=== PATIENT | male | born 1950 | race Caucasian/White ===

== ENCOUNTER → 2017-01-25 | Outpatient (CLI) | payer BC, OTHER ==
--- NOTE | 2017-01-25 12:29 | CR ---
EXAMINATION: Pelvis and right hip HISTORY: Pain COMPARISON: None TECHNIQUE: AP pelvis and 2 views of the right hip FINDINGS: There is no acute osseous abnormality, dislocation, or fracture. Bone mineralization appea rs normal. SI joints are symmetric. Osteophyte formation is noted within the hips bilaterally. Moder ate joint space narrowing is noted within the left hip with probable mild joint space narrowing note d within the right. IMPRESSION: 1. Moderate degenerative changes and joint space narrowing within the left hip and mild within the r ight hip.
== END ==
LOC: MW.CHORTHO 07:41
PROVIDERS: ATTEND Orthopaedic Surgery
DX: M25.551 Pain in right hip (principal); M25.552 Pain in left hip; M25.852 Other specified joint disorders, left hip; M25.851 Other specified joint disorders, right hip
CPT/HCPCS: 73502-26-RT; 73502-RT

== ENCOUNTER → 2017-02-09 | Outpatient (CLI) | payer OTHER ==
--- NOTE | 2017-02-09 14:13 | CR ---
EXAMINATION: Cervical spine HISTORY: Neck pain COMPARISON: MRI dated 07/28/2016 TECHNIQUE: Single lateral view FINDINGS: There is anterior fusion hardware noted from C5 to C7 with anterior osseous bridging. Face t alignment is preserved. Vertebral body heights are maintained. Prevertebral soft tissues appear no rmal. No acute finding. IMPRESSION: Anterior fusion from C5 to C7 otherwise unremarkable cervical spine.
== END ==
LOC: MW.DI 09:21
PROVIDERS: ATTEND Neurological Surgery
DX: M54.2 Cervicalgia (principal)
CPT/HCPCS: 72020; 72020-26

== ENCOUNTER 2019-08-08 17:18 | Day surgery (SDC) | payer OTHER, MEDICARE ==
[2019-08-08] MEDS ORDERED: Ondansetron 4 MG/2 ML SDV IVPUSH ONE (17:19)
[2019-08-08] MEDS ORDERED: Sodium Chloride 0.9% 1,000 ML IV ONE (17:19)
[2019-08-08] MEDS ORDERED: Morphine 2 MG/ML Syringe IVPUSH ONE (17:32)
--- NOTE | 2019-08-08 17:43 | EDM.PDOC ---
ED HPI GENERAL MEDICAL PROBLEM - General Chief Complaint: Abdominal Pain Stated Complaint: SEVERE STOMACH PAIN Time Seen by Provider: 08/08/19 17:19 Source of Information: Reports: Patient History Limitations: Reports: No Limitations - History of Present Illness INITIAL COMMENTS - FREE TEXT/NARRATIVE: HISTORY AND PHYSICAL: History of present illness: Patient is a 68-year-old male presents to the ED today with concern of right lower quadrant pain since earlier this morning. Patient states he's not been able to eat and drink since last night due to nausea but states he has not vomited. Patient states starting today he started getting right lower quadrant pain which she rates a 9 out of 10 and is worse with movement and better with laying down. Patient states he has a history of COPD but denies any other health history or any abdominal surgeries. Patient states his last bowel movement was several days ago and he felt more constipated. Patient denies any other symptoms or concerns. Patient denies fever, chills, chest pain, shortness of breath, or cough. Denies headache, neck stiff ness, change in vision, syncope, or near syncope. Denies vomiting, or dysuria. Has not noted any blood in urine or stool. Review of systems: As per history of present illness and below otherwise all systems reviewed and negative. Past medical history: As per history of present illness and as reviewed below otherwise noncontributory. Surgical history: As per history of present illness and as reviewed below otherwise noncontributory. Social history: See social history for further information Family history: As per history of present illness and as reviewed below otherwise noncontributory. Physical exam: General: Patient is alert, oriented, and in no acute distress. Patient laying comfortably on exam table. HEENT: Atraumatic, normocephalic, pupils equal and reactive bilaterally, negative for conjunctival pallor or scleral icterus, mucous membranes dry, TMs normal bilaterally, throat clear, neck supple, nontender, trachea midline. No drooling or trismus noted. No meningeal signs. No hot potato voice noted. Lungs: Mild wheezing to auscultation to bilateral lung bases, breath sounds equal bilaterally, chest nontender. Heart: S1S2, regular rate and rhythm without overt murmur Abdomen: Obese, Soft, nondistended, moderate right lower quadrant pain without guarding. Positive rebound tenderness. Negative for masses or hepatosplenomegaly. Negative for costovertebral tenderness. Pelvis: Stable nontender. Genitourinary: Deferred. Rectal: Deferred. Skin: Intact, warm, dry. No lesions or rashes noted. Extremities: Atraumatic, negative for cords or calf pain. Neurovascular unremarkable. Neuro: Awake, alert, oriented. Cranial nerves II through XII unremarkable. Cerebellum unremarkable. Motor and sensory unremarkable throughout. Exam nonfocal. Notes: Dr. Bermudez consult on patient and has come in to see the patient. Voices understanding and is agreeable to plan of care. Denies any further questions or concerns at this time. Diagnostics: CBC, CMP, UA, EKG, lipase, abdominal pelvic CT Therapeutics: Saline, Zofran, morphine Impression: Acute appendicitis Intussusception w/o obstruction Left adrenal mass Plan: 1. Transfer to the OR with Dr. Bermudez Definitive disposition and diagnosis as appropriate pending reevaluation and review of above. RLQ Pain Score (Numeric/FACES): 8 - Related Data Allergies Allergy/AdvReac Type Severity Reaction Status Date / Time No Known Allergies Allergy Verified 08/08/19 17:25 Home Meds: Home Meds Benzonatate 100 mg PO TID 08/08/19 [History] Budesonide/Formoterol Fumarate [Symbicort 160-4.5 Mcg Inhaler] 160 mcg INH ASDIRECTED 08/08/19 [History] Furosemide 40 mg PO DAILY 08/08/19 [History] Loratadine [Claritin] 10 mg PO DAILY 08/08/19 [History] Losartan [Cozaar] 100 mg PO DAILY 08/08/19 [History] Potassium Chloride 10 meq PO DAILY 08/08/19 [History] amLODIPine [Norvasc] 5 mg PO DAILY 08/08/19 [History] atorvaSTATin [Lipitor] 40 mg PO DAILY 08/08/19 [History] buPROPion HCl [Wellbutrin Xl] 300 mg PO DAILY 08/08/19 [History] guaiFENesin [Guaifenesin] 600 mg PO Q6HR 08/08/19 [History] metFORMIN HCl [Metformin HCl ER] 500 mg PO DAILY 08/08/19 [History] Past Medical History HEENT History: Reports: Hard of Hearing, Other (See Below) Other HEENT History: wears glasses, has upper and lower dentures, sensorineural hearing loss Cardiovascular History: Reports: Angina, High Cholesterol, Hypertension, Other ( See Below) Other Cardiovascular History: hyperlipidema, ischemic heart disease Respiratory History: Reports: COPD, SOB Gastrointestinal History: Reports: Other (See Below) Other Gastrointestinal History: Umbillical Hernia Genitourinary History: Reports: Other (See Below) Other Genitourinary History: testicular hypogonadism, Musculoskeletal History: Reports: Arthritis Neurological History: Reports: Neuropathy, Diabetic, Other (See Below) Other Neuro History: insomnia Psychiatric History: Reports: Anxiety, PTSD Other Psychiatric History: denies need for pre admit sedation Endocrine/Metabolic History: Reports: Diabetes, Type II, Obesity/BMI 30+ Hematologic History: Reports: None Immunologic History: Reports: None Oncologic (Cancer) History: Reports: None Dermatologic History: Reports: None - Past Surgical History Head Surgeries/Procedures: Reports: None HEENT Surgical History: Reports: None Cardiovascular Surgical History: Reports: None Respiratory Surgical History: Reports: None GI Surgical History: Reports: Colonoscopy, Hernia, Inguinal Male Surgical History: Reports: None Musculoskeletal Surgical History: Reports: None Oncologic Surgical History: Reports: None Dermatological Surgical History: Reports: None Social & Family History - Family History Family Medical History: Noncontributory - Tobacco Use Smoking Status *Q: Former Smoker Used Tobacco, but Quit: Yes Month/Year Tobacco Last Used: 4 months - Caffeine Use Caffeine Use: Reports: None - Recreational Drug Use Recreational Drug Use: Yes Recreational Drug Type: Reports: Marijuana/Hashish Recreational Drug Use Frequency: Daily ED ROS GENERAL - Review of Systems Review Of Systems: ROS reveals no pertinent complaints other than HPI. ED EXAM, GENERAL - Physical Exam Exam: See Below (See dictation) Course - Vital Signs Last Recorded V/S: Last Vital Signs Temp 36.1 C 08/08/19 17:31 Pulse 64 08/08/19 18:45 Resp 18 08/08/19 18:45 BP 163/54 H 08/08/19 18:45 Pulse Ox 95 08/08/19 18:45 - Orders/Labs/Meds Orders: Active Orders 24 hr Category Date Time Status EKG Documentation Completion [RC] STAT Care 08/08/19 17:32 Active UA RFX MERLIN AND CULT IF INDIC [URIN] Stat Lab 08/08/19 17:19 Ordered Labs: Laboratory Tests 09/10/19 09/10/19 Range/Units 17:28 17:28 WBC 12.22 H (4.0-11.0) K/uL RBC 4.46 L (4.50-5.90) M/uL Hgb 13.2 (13.0-17.0) g/dL Hct 40.7 (38.0-50.0) % MCV 91.3 (80.0-98.0) fL MCH 29.6 (27.0-32.0) pg MCHC 32.4 (31.0-37.0) g/dL RDW Std Deviation 46.5 (28.0-62.0) fl RDW Coeff of Glo 14 (11.0-15.0) % Plt Count 224 (150-400) K/uL MPV 10.10 (7.40-12.00) fL Neut % (Auto) 77.8 (48.0-80.0) % Lymph % (Auto) 14.6 L (16.0-40.0) % [place] % (Auto) 5.8 (0.0-15.0) % Eos % (Auto) 1.5 (0.0-7.0) % Baso % (Auto) 0.3 (0.0-1.5) % Neut # (Auto) 9.5 H (1.4-5.7) K/uL Lymph # (Auto) 1.8 (0.6-2.4) K/uL [place] # (Auto) 0.7 (0.0-0.8) K/uL Eos # (Auto) 0.2 (0.0-0.7) K/uL Baso # (Auto) 0.0 (0.0-0.1) K/uL Nucleated RBC % 0.0 /100WBC Nucleated RBCs # 0 K/uL Sodium 141 (136-148) mmol/L Potassium 4.4 (3.5-5.1) mmol/L Chloride 104 (98-107) mmol/L Carbon Dioxide 27.2 (21.0-32.0) mmol/L BUN 17 (7.0-18.0) mg/dL Creatinine 1.2 (0.8-1.3) mg/dL Est Cr Clr Drug Dosing 63.62 mL/min Estimated GFR (MDRD) > 60.0 ml/min Glucose 89 (74-106) mg/dL Calcium 9.2 (8.5-10.1) mg/dL Total Bilirubin 0.4 (0.2-1.0) mg/dL AST 16 (15-37) IU/L ALT 30 (14-63) IU/L Alkaline Phosphatase 72 (46-116) U/L Total Protein 6.3 L (6.4-8.2) g/dL Albumin 3.5 (3.4-5.0) g/dL Globulin 2.8 (2.6-4.0) g/dL Albumin/Globulin Ratio 1.2 (0.9-1.6) Lipase 82 (73-393) U/L Meds: Medications Discontinued Medications Generic Name Dose Route Start Last Admin Trade Name Justinq PRN Reason Stop Dose Admin Sodium Chloride 1,000 mls @ 999 mls/hr 08/08/19 17:19 08/08/19 17:34 Normal Saline IV 08/08/19 18:19 999 mls/hr BOLUS ONE Administration Iopamidol 100 ml 08/08/19 18:47 08/08/19 18:48 Isovue Multipack-370 (76%) IVPUSH 08/08/19 18:48 100 ml ONETIME ONE Administration Morphine Sulfate 2 mg 08/08/19 17:32 08/08/19 17:41 Morphine IVPUSH 08/08/19 17:33 2 mg ONETIME ONE Administration Ondansetron HCl 4 mg 08/08/19 17:19 08/08/19 17:34 Zofran IVPUSH 08/08/19 17:20 4 mg ONETIME ONE Administration Departure - Departure Time of Disposition: 20:02 Disposition: Still A Patient 30 Clinical Impression: Adrenal mass, Intussusception Acute appendicitis Qualifiers: Acute appendicitis type: unspecified acute appendicitis type Qualified Code(s) : K35.80 - Unspecified acute appendicitis - Discharge Information - My Orders Last 24 Hours: My Active Orders 08/08/19 17:19 UA RFX MERLIN AND CULT IF INDIC [URIN] Stat 08/08/19 17:32 EKG Documentation Completion [RC] STAT - Assessment/Plan Last 24 Hours: My Active Orders 08/08/19 17:19 UA RFX MERLIN AND CULT IF INDIC [URIN] Stat 08/08/19 17:32 EKG Documentation Completion [RC] STAT
[2019-08-08 18:03] LABS: BLOOD UREA NITROGEN,BUN 17 mg/dL (7.0-18.0); CARBON DIOXIDE,CO2 27.2 mmol/L (21.0-32.0); CHLORIDE,CL 104 mmol/L (98-107); GLUCOSE RANDOM 89 mg/dL (74-106); LIPASE 82 U/L (73-393); POTASSIUM,K 4.4 mmol/L (3.5-5.1); SODIUM,NA 141 mmol/L (136-148)
[2019-08-08] MEDS ORDERED: Iopamidol 755 MG/ML 500 ML Multipack Bottle IVPUSH ONE (18:47)
--- NOTE | 2019-08-08 19:49 | CT ---
INDICATION: Right lower quadrant pain TECHNIQUE: CT abdomen and pelvis acquired with 100 cc Isovue 370 IV contrast. COMPARISON: None FINDINGS: Lower chest: Coronary artery calcification. Liver: Unremarkable. Spleen: Unremarkable. Pancreas: Unremarkable. Gallbladder and bile ducts: Unremarkable. Adrenal glands: 1.3 x 1.5 cm left adrenal gland mass. Kidneys: Simple cyst on the right kidney. GI tract: The appendix measures 9 mm in diameter. Mild periappendiceal fat stranding. Findings are best seen on coronal images 22-34. No extraluminal air or abscess. Intussusception at the level of the pylorus. No evidence for obstruction. No definite lead point identified. Duodenal diverticulum. Vascular structures: Moderate atherosclerotic disease. Lymph nodes: Unremarkable. Miscellaneous: Unremarkable. No free air or significant free fluid. Pelvic Organs: Unremarkable. Bones: Bilateral L5 pars defects. Severe degenerative changes at L5-S1. Moderate degenerative changes throughout the remainder of the lumbar spine. IMPRESSION: The appendix measures 9 mm in diameter and there is mild periappendiceal fat stranding. Findings are highly concerning for acute appendicitis. No abscess or extraluminal air. There is an intussusception at the level of the pylorus without obstruction. Consider nonemergent endoscopy to evaluate for lead point. Coronary artery calcifications. Left adrenal gland mass. Recommend adrenal CT for further characterization. Duodenal diverticulum. Findings discussed with Dr. Hernandez at 7:47 p.m. on August 08, 2019. Please note that all CT scans at this facility use dose modulation, iterative reconstruction, and/or weight-based dosing when appropriate to reduce radiation dose to as low as reasonably achievable. Dictated by Shreya Campbell MD @ Aug 08 2019 7:16PM (Electronically Signed)
--- NOTE | 2019-08-08 20:50 | PCM.PREANE ---
Preanesthetic Assessment - Anesthesia/Transfusion/Family Hx Anesthesia History: Prior Anesthesia Without Reaction Other Type of Anesthesia Reaction Comment: Denies any known problems Family History of Anesthesia Reaction: No Transfusion History: No Prior Transfusion(s) - Review of Systems General: Fever Pulmonary: Cough Cardiovascular: Edema Gastrointestinal: No Symptoms Neurological: No Symptoms Other: Reports: None - Physical Assessment NPO Status Date: 08/08/19 Vital Signs: Last Vital Signs Temp 96.9 F 08/08/19 17:31 Pulse 64 08/08/19 18:45 Resp 18 08/08/19 18:45 BP 163/54 H 08/08/19 18:45 Pulse Ox 95 08/08/19 18:45 Height: 5 ft 11 in Weight: 105 kg ASA Class: 3E Mental Status: Alert & Oriented x3 Airway Class: Mallampati = 2 Dentition: Reports: Normal Dentition Thyro-Mental Finger Breadths: 3 Mouth Opening Finger Breadths: 3 ROM/Head Extension: Limited/Partial (Cervical Fusion) Lungs: Clear to Auscultation, Normal Respiratory Effort Cardiovascular: Regular Rate, Regular Rhythm - Lab Values: Laboratory Last Values WBC 12.22 K/uL (4.0-11.0) H 08/08/19 17:28 RBC 4.46 M/uL (4.50-5.90) L 08/08/19 17:28 Hgb 13.2 g/dL (13.0-17.0) 08/08/19 17:28 Hct 40.7 % (38.0-50.0) 08/08/19 17:28 MCV 91.3 fL (80.0-98.0) 08/08/19 17:28 MCH 29.6 pg (27.0-32.0) 08/08/19 17:28 MCHC 32.4 g/dL (31.0-37.0) 08/08/19 17:28 RDW Std Deviation 46.5 fl (28.0-62.0) 08/08/19 17:28 RDW Coeff of Glo 14 % (11.0-15.0) 08/08/19 17:28 Plt Count 224 K/uL (150-400) 08/08/19 17:28 MPV 10.10 fL (7.40-12.00) 08/08/19 17:28 Neut % (Auto) 77.8 % (48.0-80.0) 08/08/19 17: Lymph % (Auto) 14.6 % (16.0-40.0) L 08/08/19: [place] % (Auto) 5.8 % (0.0-15.0) 08/08/19: Eos % (Auto) 1.5 % (0.0-7.0) 08/08/19: Baso % (Auto) 0.3 % (0.0-1.5) 08/08/19: Neut # (Auto) 9.5 K/uL (1.4-5.7) H 08/08/19: Lymph # (Auto) 1.8 K/uL (0.6-2.4) 08/08/19: [place] # (Auto) 0.7 K/uL (0.0-0.8) 08/08/19: Eos # (Auto) 0.2 K/uL (0.0-0.7) 08/08/19: Baso # (Auto) 0.0 K/uL (0.0-0.1) 08/08/19: Nucleated RBC % 0.0 /100WBC 08/08/19: Nucleated RBCs # 0 K/uL 08/08/19: Sodium 141 mmol/L (136-148) 08/08/19: Potassium 4.4 mmol/L (3.5-5.1) 08/08/19: Chloride 104 mmol/L (98-107) 08/08/19: Carbon Dioxide 27.2 mmol/L (21.0-32.0) 08/08/19: BUN 17 mg/dL (7.0-18.0) 08/08/19: Creatinine 1.2 mg/dL (0.8-1.3) 08/08/19: Est Cr Clr Drug Dosing 63.62 mL/min 08/08/19 17:28 Estimated GFR (MDRD) > 60.0 ml/min 08/08/19 17:28 Glucose 89 mg/dL (74-106) 08/08/19: Calcium 9.2 mg/dL (8.5-10.1) 08/08/19 17:28 Total Bilirubin 0.4 mg/dL (0.2-1.0) 08/08/19 17:28 AST 16 IU/L (15-37) 08/08/19 17:28 ALT 30 IU/L (14-63) 08/08/19 17:28 Alkaline Phosphatase 72 U/L (46-116) 08/08/19 17:28 Total Protein 6.3 g/dL (6.4-8.2) L 08/08/19 17:28 Albumin 3.5 g/dL (3.4-5.0) 08/08/19 17:28 Globulin 2.8 g/dL (2.6-4.0) 08/08/19 17:28 Albumin/Globulin Ratio 1.2 (0.9-1.6) 08/08/19 17:28 Lipase 82 U/L (73-393) 08/08/19 17:28 - Allergies Allergies/Adverse Reactions: Allergies Allergy/AdvReac Type Severity Reaction Status Date / Time No Known Allergies Allergy Verified 08/08/19 17:25 - Anesthesia Plan Free Text/Narrative:: Pt states they just returned from [place] today; he states he was able to walk around without difficulty or shortness of breath. Pt denies any chest pain. Pt states he did have a chemical stress test 3-4 years ago that was negative. - Acknowledgements Anesthesia Type Planned: General Anesthesia Pt an Appropriate Candidate for the Planned Anesthesia: Yes Alternatives and Risks of Anesthesia Discussed w Pt/Guardian: Yes Pt/Guardian Understands and Agrees with Anesthesia Plan: Yes PreAnesthesia Questionnaire HEENT History: Reports: Hard of Hearing, Other (See Below) Other HEENT History: wears glasses, has upper and lower dentures, sensorineural hearing loss Cardiovascular History: Reports: Angina, High Cholesterol, Hypertension, Other ( See Below) Other Cardiovascular History: hyperlipidema, ischemic heart disease Respiratory History: Reports: COPD, SOB Gastrointestinal History: Reports: Other (See Below) Other Gastrointestinal History: Umbillical Hernia Genitourinary History: Reports: Other (See Below) Other Genitourinary History: testicular hypogonadism, Musculoskeletal History: Reports: Arthritis Neurological History: Reports: Neuropathy, Diabetic, Other (See Below) Other Neuro History: insomnia Psychiatric History: Reports: Anxiety, PTSD Other Psychiatric History: denies need for pre admit sedation Endocrine/Metabolic History: Reports: Diabetes, Type II, Obesity/BMI 30+ Hematologic History: Reports: None Immunologic History: Reports: None Oncologic (Cancer) History: Reports: None Dermatologic History: Reports: None - Past Surgical History Head Surgeries/Procedures: Reports: None HEENT Surgical History: Reports: None Cardiovascular Surgical History: Reports: None Respiratory Surgical History: Reports: None GI Surgical History: Reports: Colonoscopy, Hernia, Inguinal Male Surgical History: Reports: None Musculoskeletal Surgical History: Reports: None Oncologic Surgical History: Reports: None Dermatological Surgical History: Reports: None - SUBSTANCE USE Smoking Status *Q: Former Smoker Recreational Drug Use History: Yes Recreational Drug Type: Reports: Marijuana/Hashish - HOME MEDS Home Medications: Home Meds Benzonatate 100 mg PO TID 08/08/19 [History] Budesonide/Formoterol Fumarate [Symbicort 160-4.5 Mcg Inhaler] 160 mcg INH ASDIRECTED 08/08/19 [History] Furosemide 40 mg PO DAILY 08/08/19 [History] Loratadine [Claritin] 10 mg PO DAILY 08/08/19 [History] Losartan [Cozaar] 100 mg PO DAILY 08/08/19 [History] Potassium Chloride 10 meq PO DAILY 08/08/19 [History] amLODIPine [Norvasc] 5 mg PO DAILY 08/08/19 [History] atorvaSTATin [Lipitor] 40 mg PO DAILY 08/08/19 [History] buPROPion HCl [Wellbutrin Xl] 300 mg PO DAILY 08/08/19 [History] guaiFENesin [Guaifenesin] 600 mg PO Q6HR 08/08/19 [History] metFORMIN HCl [Metformin HCl ER] 500 mg PO DAILY 08/08/19 [History] - CURRENT (IN HOUSE) MEDS Current Meds: Current Medications Discontinued Medications Sodium Chloride (Normal Saline) 1,000 mls @ 999 mls/hr IV BOLUS ONE Stop: 08/08/19 18:19 Last Admin: 08/08/19 17:34 Dose: 999 mls/hr Iopamidol (Isovue Multipack-370 (76%)) 100 ml IVPUSH ONETIME ONE Stop: 08/08/19 18:48 Last Admin: 08/08/19 18:48 Dose: 100 ml Morphine Sulfate (Morphine) 2 mg IVPUSH ONETIME ONE Stop: 08/08/19 17:33 Last Admin: 08/08/19 17:41 Dose: 2 mg Ondansetron HCl (Zofran) 4 mg IVPUSH ONETIME ONE Stop: 08/08/19 17:20 Last Admin: 08/08/19 17:34 Dose: 4 mg
[2019-08-08] MEDS ORDERED: cefOXitin 2 GM in Premix Bag 1 BAG IV ONE (20:58)
[2019-08-08] MEDS ORDERED: Lactated Ringers 1,000 ML IV SCH ×2 (21:00→23:15)
[2019-08-08] MEDS ORDERED: Bupivacaine 25%/EPINEPHrine/PF 30 ML ONE (21:02)
[2019-08-08] MEDS ORDERED: Midazolam 1 MG/ML 2 ML SDV ONE (21:21)
[2019-08-08] MEDS ORDERED: Sodium Chloride 0.9% 20 ML ONE ×2 (21:21→21:43)
[2019-08-08] MEDS ORDERED: Lidocaine 2% 5 ML SDV ONE (21:21)
[2019-08-08] MEDS ORDERED: ePHEDrine 50 MG/ML SDV ONE (21:21)
[2019-08-08] MEDS ORDERED: Ondansetron 4 MG/2 ML SDV ONE (21:21)
[2019-08-08] MEDS ORDERED: Propofol 200 MG/20 ML SDV ONE (21:21)
[2019-08-08] MEDS ORDERED: fentaNYL 250 MCG/5 ML SDV ONE (21:21)
[2019-08-08] MEDS ORDERED: Rocuronium 100 MG/10 ML Syringe ONE (21:22)
--- NOTE | 2019-08-08 21:33 | PCM.SN ---
- Free Text/Narrative Note: pt seen, chart reviewed; acute appy, to or for lap, poss appy; rb dw pt re bleeding/infection/damage to nearby organs/postop course; pt concur and proceed ; other cT findings will not be addressed tonight; pt voiced understanding; [id number]
[2019-08-08] MEDS ORDERED: Glycopyrrolate 0.2 MG/ML SDV ONE ×2 (21:34→21:36)
[2019-08-08] MEDS ORDERED: Phenylephrine/Normal Saline 100 MCG/ML 10 ML Syringe ONE (21:42)
[2019-08-08] MEDS ORDERED: cefOXitin 1 GM Vial ONE (21:47)
[2019-08-08] MEDS ORDERED: EPINEPHrine 1:10,000 1 MG/10 ML Syringe IVPUSH PRN (22:18)
[2019-08-08] MEDS ORDERED: fentaNYL 100 MCG/2 ML SDV IVPUSH PRN (22:18)
[2019-08-08] MEDS ORDERED: 50% Dextrose in Water 50 ML Syringe IVPUSH PRN (22:18)
[2019-08-08] MEDS ORDERED: Atropine 0.1 MG/ML 10 ML Syringe IVPUSH PRN ×2 (22:18)
[2019-08-08] MEDS ORDERED: Albuterol 0.083% 2.5 MG/3 ML Neb Soln NEB PRN (22:18)
[2019-08-08] MEDS ORDERED: Naloxone 0.4 MG/ML Syringe IVPUSH PRN (22:18)
--- NOTE | 2019-08-08 23:04 | PCM.OPNOTE ---
- General Post-Op/Procedure Note Date of Surgery/Procedure: 08/08/19 Operative Procedure(s): 1) lap appendectomy. 2) lap internal hernia take down Findings: appendix incarcerated and strangulated in internal hernia; gross perf not observed; [id number] Pre Op Diagnosis: acute appendicitis Post-Op Diagnosis: Same Anesthesia Technique: General ET Tube Primary Surgeon: Donavon Bermudez Pathology: sent Complications: None Condition: Stable
[2019-08-08] MEDS ORDERED: Ondansetron 4 MG/2 ML SDV IVPUSH PRN (23:06)
[2019-08-08] MEDS ORDERED: Morphine 2 MG/ML Syringe IVPUSH PRN (23:07)
--- NOTE | 2019-08-08 23:13 | PCM.POSTAN ---
POST ANESTHESIA ASSESSMENT - MENTAL STATUS Mental Status: Alert, Oriented - VITAL SIGNS Vital Signs: Last Vital Signs Temp 98.2 F 08/08/19 22:53 Pulse 65 08/08/19 22:53 Resp 14 08/08/19 22:53 BP 163/54 H 08/08/19 18:45 Pulse Ox 96 08/08/19 22:53 - RESPIRATORY Respiratory Status: Respiratory Rate WNL, Airway Patent, O2 Saturation Stable, Supplemental Oxygen - CARDIOVASCULAR CV Status: Pulse Rate WNL, Blood Pressure Stable - GASTROINTESTINAL GI Status: No Symptoms - PAIN Pain Score: 1 - POST OP HYDRATION Hydration Status: Adequate & Stable - OBSERVATIONS Free Text/Narrative:: Tele ordered for overnight monitoring due to Ischemic heart disease.
[2019-08-09] MEDS: Acetaminophen/oxyCODONE 325-5 MG Tab PO PRN ×2 (01:20→08:46)
--- NOTE | 2019-08-09 03:39 | CONS ---
DATE OF CONSULTATION: DATE OF : 1950 PRIMARY CARE PHYSICIAN: None PCP REASON FOR CONSULTATION: Acute appendicitis. HISTORY OF PRESENT ILLNESS: The patient is a 68-year-old obese gentleman complaining over an hour history of acute onset of right lower quadrant pain and seen in the emergency room and got a CAT scan shows dilated appendix with dirty fat consistent with early acute appendicitis. The patient currently complaining of pain and denied fever, chill, or trauma. Denied prior episode. PAST MEDICAL HISTORY: Significant for hypertension, diabetic and COPD. PAST SURGICAL HISTORY: Bilateral inguinal hernia repair with mesh and umbilical hernia. The patient said that there is no mesh. EGD and colonoscopy. ALLERGIES: Please refer to nursing for details. MEDICATIONS: Please refer to nursing for details. REVIEW OF SYSTEMS: Same as history of present illness. PHYSICAL EXAMINATION: GENERAL: A very pleasant gentleman, even getting in and out of bed in the coleman motion. HEENT: Normocephalic and atraumatic. Sclerae anicteric. LUNGS: Clear to auscultation. HEART: Regular rate and rhythm. ABDOMEN: Soft. No pulsating tender, midline abdominal structure. Exquisite tenderness on the McBurney point. No rebound tenderness. No Rovsing sign. LABORATORY DATA: White count is [address] consistent with acute appendicitis. IMPRESSION: Acute appendicitis and would predict the operating room for surgical intervention. Risks and benefits discussed with the patient including bleeding, infection, damage to nearby organ or possible drain placement if perforated and the patient concurred to proceed as planned and on the CAT scan finding, there is some other thing like intussusception of the pylorus as well as left adrenal mass. This will not be considered or assessed or evaluated tonight. On emergent surgery, we will take care of the appendix and all else we will address after the surgery. The patient voiced understanding. As always, thank you for your kind referral. EDWAR / CHARLIE /[id number]
--- NOTE | 2019-08-09 07:11 | PCM48HPAN ---
Post Anesthesia Note - EVALUATION WITHIN 48HRS OF ANESTHETIC Vital Signs in Normal Range: Yes Patient Participated in Evaluation: Yes Respiratory Function Stable: Yes (0.5 LPM via NC) Airway Patent: Yes Cardiovascular Function Stable: Yes Hydration Status Stable: Yes Pain Control Satisfactory: Yes Nausea and Vomiting Control Satisfactory: Yes Mental Status Recovered: Yes Vital Signs: Last Vital Signs Temp 98.2 F 08/09/19 04:00 Pulse 64 08/09/19 04:00 Resp 18 08/09/19 04:00 BP 135/63 08/09/19 04:00 Pulse Ox 98 08/09/19 04:00
[2019-08-09 08:22] VITALS: BP 141/61; PULSE 65
--- NOTE | 2019-08-09 08:49 | OR ---
SURGEON: Donavon Bermudez MD DATE OF PROCEDURE: 08/08/2019 PREOPERATIVE DIAGNOSIS: Acute appendicitis. POSTOPERATIVE DIAGNOSIS: Acute appendicitis. PROCEDURE PERFORMED: Laparoscopic appendectomy. COMPLICATIONS: None. FINDINGS: Quite interesting, the appendix was incarcerated in an internal hernia from prior surgical scar formation, and half of the appendix has gone through and become dilated and dusky in appearance because of the internal hernia. After hernia release, the appendix totally goes back to normal. Gross perforation is not observed. DESCRIPTION OF PROCEDURE: The patient was taken to the operating room and placed in the supine position. Upon induction of general endotracheal anesthesia, the patient's abdomen was prepped and draped in a sterile fashion. Using Redditview, a 12 mm trocar was placed supraumbilically and followed with placement of 5 mm trocar in the right upper quadrant and suprapubic under direct video supervision. Pneumoperitoneum was accomplished, and following the tenia of the right colon, the appendix was located, and interestingly, the appendix looks like it goes through an internal hernia formed between the abdominal wall with some scar tissue. There is a little window that the appendix goes through and was incarcerated in the mid appendix, in the mid length, and the appendix is dilated and a little bit dusky in appearance. Using Harmonic scalpel, the internal hernia was then opened up, and the appendix totally returned to pink and well perfused. Using laparoscopic stapler, the appendix was amputated at the base with mesoappendix together and retrieved by the endoscopic bag. After surgery, looking at the staple line, there was a little bit of bleeding on the mesoappendix, and 2 endoscopic holden were placed followed by a piece of Surgicel, and the trocar was then removed. Under direct video supervision, the 12 mm supraumbilical trocar site was repaired by use of 2-0 Vicryl, followed by skin stapler to approximate the skin, as well as at the other two 5 mm trocar sites, followed by appropriate dressing. The patient was awakened, extubated, and transferred to the Recovery in hemodynamically stable condition. The patient tolerated the procedure well. There were no intraoperative complications. Dr. Bermudez was present throughout the whole procedure. As always, thank you for the kind referral. EDWAR / CHARLIE /[id number]
== END 2019-08-09 11:45 | disposition home or self-care (01) ==
LOC: MW.ED 17:18 → MW.SDS 20:46 → MW.MS 23:05 → MW.SDS 08-09 11:45
PROVIDERS: ATTEND Surgery
DX: K35.80 Unspecified acute appendicitis (principal); J44.9 Chronic obstructive pulmonary disease, unspecified; I10 Essential (primary) hypertension; E11.40 Type 2 diabetes mellitus with diabetic neuropathy, unspecified; E66.9 Obesity, unspecified; F32.9 Major depressive disorder, single episode, unspecified; Z79.899 Other long term (current) drug therapy; Z79.84 Long term (current) use of oral hypoglycemic drugs; Z87.891 Personal history of nicotine dependence; Z68.32 Body mass index [BMI] 32.0-32.9, adult
CPT/HCPCS: 36415; 44970; 74177; 80053; 81003; 83690; 85025; 88304; 93005; 96361; 96365; 96375; 99285; A9270; J0330; J0694; J2001; J2250; J2270; J2370; J2405; J2704; J3010; J3490; J7040; J7120; Q9967; 99283

== ENCOUNTER 2020-08-28 09:44 | Inpatient (IN) | payer OTHER, MEDICARE ==
[2020-08-28] MEDS ORDERED: Sodium Chloride 0.9% 10 ML Syringe FLUSH PRN (09:47)
[2020-08-28] MEDS ORDERED: Sodium Chloride 0.9% 2.5 ML Syringe FLUSH PRN (09:47)
--- NOTE | 2020-08-28 09:57 | EDM.PDOC ---
ED HPI GENERAL MEDICAL PROBLEM - General Stated Complaint: STROKE CODE Time Seen by Provider: 08/28/20 09:47 Source of Information: Reports: Patient, EMS History Limitations: Reports: No Limitations - History of Present Illness INITIAL COMMENTS - FREE TEXT/NARRATIVE: 69M PMHx COPD, CHF, NIDDM2, recent total L hip replacement 2-weeks ago, recently diagnosed unspecified cancer presents for concern for CVA. History from EMS. Patient has had a non-productive cough x roughly 5 days. His was recently diagnosed with pneumonia and concern for COVID. Patient last night went to bed feeling well. Woke up around 5AM and was noted to be normal. Around 9AM he was noted by home health nurse to have right-sided body weakness and difficulty with speech prompting EMS call. By the time EMS arrived, patient was noted to have normal/symmetric movement of b/l UE/LE but still with speech difficulty. Through chart searching, it appears that patient has primary lung CA w/ metastatic disease to mediastinal lymph nodes, liver, and adrenal gland. - Related Data Allergies Allergy/AdvReac Type Severity Reaction Status Date / Time No Known Allergies Allergy Verified 08/28/20 09:50 Home Meds: Home Meds Furosemide 40 mg PO DAILY 08/08/19 [History] Losartan [Cozaar] 100 mg PO DAILY 08/08/19 [History] Potassium Chloride 10 meq PO DAILY 08/08/19 [History] amLODIPine [Norvasc] 5 mg PO DAILY 08/08/19 [History] atorvaSTATin [Lipitor] 40 mg PO DAILY 08/08/19 [History] buPROPion HCL [Wellbutrin Xl] 300 mg PO DAILY 08/08/19 [History] metFORMIN HCl [Metformin HCl ER] 500 mg PO DAILY 08/08/19 [History] Albuterol Sulfate [Albuterol Sulfate Hfa] 1 puff INH ASDIRECTED 08/28/20 [History] Past Medical History HEENT History: Reports: Hard of Hearing, Other (See Below) Other HEENT History: wears glasses, has upper and lower dentures, sensorineural hearing loss Cardiovascular History: Reports: Angina, High Cholesterol, Hypertension, Other (See Below) Other Cardiovascular History: hyperlipidema, ischemic heart disease Respiratory History: Reports: COPD, SOB Gastrointestinal History: Reports: Other (See Below) Other Gastrointestinal History: Umbillical Hernia Genitourinary History: Reports: Other (See Below) Other Genitourinary History: testicular hypogonadism, Musculoskeletal History: Reports: Arthritis Neurological History: Reports: Neuropathy, Diabetic, Other (See Below) Other Neuro History: insomnia Psychiatric History: Reports: Anxiety, PTSD Other Psychiatric History: denies need for pre admit sedation Endocrine/Metabolic History: Reports: Diabetes, Type II, Obesity/BMI 30+ Hematologic History: Reports: None Immunologic History: Reports: None Oncologic (Cancer) History: Reports: None Dermatologic History: Reports: None - Past Surgical History Head Surgeries/Procedures: Reports: None HEENT Surgical History: Reports: None Cardiovascular Surgical History: Reports: None Respiratory Surgical History: Reports: None GI Surgical History: Reports: Colonoscopy, Hernia, Inguinal Male Surgical History: Reports: None Musculoskeletal Surgical History: Reports: None Oncologic Surgical History: Reports: None Dermatological Surgical History: Reports: None Social & Family History - Family History Family Medical History: Noncontributory - Caffeine Use Caffeine Use: Reports: Coffee ED ROS GENERAL - Review of Systems Review Of Systems: Comprehensive ROS is negative, except as noted in HPI. ED EXAM, GENERAL - Physical Exam Exam: See Below Exam Limited By: Altered Mental Status General Appearance: Alert, WD/WN, No Apparent Distress Eye Exam: Bilateral Eye: EOMI, PERRL Ears: Normal External Exam Nose: Normal Inspection Throat/Mouth: Normal Inspection, Normal Voice, No Airway Compromise Head: Atraumatic, Normocephalic Neck: Normal Inspection Respiratory/Chest: No Respiratory Distress, Lungs Clear, Normal Breath Sounds, No Accessory Muscle Use Cardiovascular: Normal Peripheral Pulses, Regular Rate, Rhythm GI/Abdominal: Soft, Non-Tender, No Distention Extremities: Normal Inspection Neurological: Alert, Oriented, CN II-XII Intact, Normal Cognition, Other (normal lamination inspector strength and sensation b/l UE, no drift b/l UE, unable to assess b/l LE 2/2 generalized weakness and recent hip surgery however normal b/l planterflexion strength) Psychiatric: Normal Affect, Normal Mood Skin Exam: Warm, Dry, Intact EKG INTERPRETATION EKG Date: 08/28/20 Time: 10:58 Rhythm: Other (appears normal) Rate (Beats/Min): 89 [place]: Normal P-Wave: Present QRS: Normal ST-T: Normal QT: Normal EKG Interpretation Comments: machine read as Afib but very shaky baseline obscures interpretation. Appears regular w/ a few PVCs. No overt ischemic changes Course - Vital Signs Last Recorded V/S: Last Vital Signs Temp 96.6 F L 08/28/20 09:44 Pulse 91 08/28/20 09:44 Resp 19 08/28/20 09:44 BP 129/61 08/28/20 09:44 Pulse Ox 94 L 08/28/20 09:44 - Orders/Labs/Meds Orders: Active Orders 24 hr Category Date Time Status Cardiac Monitoring [RC] . DIRECTED Care 08/28/20 09:48 Active EKG Documentation Completion [RC] STAT Care 08/28/20 09:47 Active Pulse Oximetry [RC] ASDIRECTED Care 08/28/20 09:48 Active Urinary Catheter Assessment [RC] ASDIRECTED Care 08/28/20 11:58 Active Urinary Catheter Insertion [Insert Urinary Catheter] [ Care 08/28/20 12:00 Ordered OM.PC] Q24H UA W/MERLIN RFLX IF INDICATED [URIN] Stat Lab 08/28/20 09:48 Ordered Sodium Chloride 0.9% [Saline Flush] Med 08/28/20 09:47 Active 10 ml FLUSH ASDIRECTED PRN Sodium Chloride 0.9% [Saline Flush] Med 08/28/20 09:47 Active 2.5 ml FLUSH ASDIRECTED PRN Saline Lock Insert [OM.PC] Stat Oth 08/28/20 09:48 Ordered Medication Orders Sodium Chloride (Saline Flush) 10 ml FLUSH ASDIRECTED PRN PRN Reason: Keep Vein Open Last Admin: 08/28/20 12:05 Dose: 10 ml Documented by: [id number] Sodium Chloride (Saline Flush) 2.5 ml FLUSH ASDIRECTED PRN PRN Reason: Keep Vein Open Last Admin: 08/28/20 12:05 Dose: 2.5 ml Documented by: [email or web address] Labs: Laboratory Tests 08/28/20 08/28/20 08/28/20 Range/Units 09:45 09:45 09:45 WBC 6.40 (4.0-11.0) K/uL RBC 3.14 L (4.50-5.90) M/uL Hgb 9.0 L (13.0-17.0) g/dL Hct 29.3 L (38.0-50.0) % MCV 93.3 (80.0-98.0) fL MCH 28.7 (27.0-32.0) pg MCHC 30.7 L (31.0-37.0) g/dL RDW Std Deviation 55.2 (28.0-62.0) fl RDW Coeff of Glo 16 H (11.0-15.0) % Plt Count 210 (150-400) K/uL MPV 10.20 (7.40-12.00) fL Neut % (Auto) 82.2 H (48.0-80.0) % Lymph % (Auto) 11.4 L (16.0-40.0) % [place] % (Auto) 5.6 (0.0-15.0) % Eos % (Auto) 0.5 (0.0-7.0) % Baso % (Auto) 0.3 (0.0-1.5) % Neut # (Auto) 5.3 (1.4-5.7) K/uL Lymph # (Auto) 0.7 (0.6-2.4) K/uL [place] # (Auto) 0.4 (0.0-0.8) K/uL Eos # (Auto) 0.0 (0.0-0.7) K/uL Baso # (Auto) 0.0 (0.0-0.1) K/uL Nucleated RBC % 0.7 /100WBC Nucleated RBCs # 0 K/uL INR 1.05 APTT 20.5 (18.6-31.3) SEC Lactate 1.6 (0.20-2.00) mmol/L Sodium (136-148) mmol/L Potassium (3.5-5.1) mmol/L Chloride (98-107) mmol/L Carbon Dioxide (21.0-32.0) mmol/L BUN (7.0-18.0) mg/dL Creatinine (0.8-1.3) mg/dL Est Cr Clr Drug Dosing mL/min Estimated GFR (MDRD) ml/min Glucose (74-106) mg/dL Calcium (8.5-10.1) mg/dL Magnesium (1.8-2.4) mg/dL Total Bilirubin (0.2-1.0) mg/dL AST (15-37) IU/L ALT (14-63) IU/L Alkaline Phosphatase (46-116) U/L Troponin I (0.000-0.056) ng/mL C-Reactive Protein (0.00-0.90) mg/dL B-Natriuretic Peptide (<100) PG/ML Total Protein (6.4-8.2) g/dL Albumin (3.4-5.0) g/dL Globulin (2.6-4.0) g/dL Albumin/Globulin Ratio (0.9-1.6) SARS-CoV-2 RNA (CHRISTINAO) (NEGATIVE) 08/28/20 08/28/20 08/28/20 Range/Units 09:45 09:45 11:00 WBC (4.0-11.0) K/uL RBC (4.50-5.90) M/uL Hgb (13.0-17.0) g/dL Hct (38.0-50.0) % MCV (80.0-98.0) fL MCH (27.0-32.0) pg MCHC (31.0-37.0) g/dL RDW Std Deviation (28.0-62.0) fl RDW Coeff of Glo (11.0-15.0) % Plt Count (150-400) K/uL MPV (7.40-12.00) fL Neut % (Auto) (48.0-80.0) % Lymph % (Auto) (16.0-40.0) % [place] % (Auto) (0.0-15.0) % Eos % (Auto) (0.0-7.0) % Baso % (Auto) (0.0-1.5) % Neut # (Auto) (1.4-5.7) K/uL Lymph # (Auto) (0.6-2.4) K/uL [place] # (Auto) (0.0-0.8) K/uL Eos # (Auto) (0.0-0.7) K/uL Baso # (Auto) (0.0-0.1) K/uL Nucleated RBC % /100WBC Nucleated RBCs # K/uL INR APTT (18.6-31.3) SEC Lactate (0.20-2.00) mmol/L Sodium 136 (136-148) mmol/L Potassium 5.1 (3.5-5.1) mmol/L Chloride 99 (98-107) mmol/L Carbon Dioxide 29.0 (21.0-32.0) mmol/L BUN 37 H (7.0-18.0) mg/dL Creatinine 1.3 (0.8-1.3) mg/dL Est Cr Clr Drug Dosing 56.15 mL/min Estimated GFR (MDRD) 54.9 ml/min Glucose 109 H (74-106) mg/dL Calcium 12.3 H (8.5-10.1) mg/dL Magnesium 1.7 L (1.8-2.4) mg/dL Total Bilirubin 0.7 (0.2-1.0) mg/dL AST 158 H (15-37) IU/L ALT 51 (14-63) IU/L Alkaline Phosphatase 233 H (46-116) U/L Troponin I < 0.050 (0.000-0.056) ng/mL C-Reactive Protein 8.10 H (0.00-0.90) mg/dL B-Natriuretic Peptide 298 H (<100) PG/ML Total Protein 6.2 L (6.4-8.2) g/dL Albumin 2.9 L (3.4-5.0) g/dL Globulin 3.3 (2.6-4.0) g/dL Albumin/Globulin Ratio 0.9 (0.9-1.6) SARS-CoV-2 RNA (CHRISTIANO) POSITIVE H (NEGATIVE) Meds: Medications Generic Name Dose Route Start Last Admin Trade Name Freq PRN Reason Stop Dose Admin Sodium Chloride 10 ml 08/28/20 09:47 08/28/20 12:05 Saline Flush FLUSH 10 ml ASDIRECTED PRN Administration Keep Vein Open Sodium Chloride 2.5 ml 08/28/20 09:47 08/28/20 12:05 Saline Flush FLUSH 2.5 ml ASDIRECTED PRN Administration Keep Vein Open - Re-Assessments/Exams Free Text/Narrative Re-Assessment/Exam: 08/28/20 10:[address] head and CTA head/neck, will get broad workup as patient's history is concerning for TIA. 08/28/20 12:23 Patient's imaging is unremarkable. Labs grossly unremarkable. COVID-19 testing is positive. Will admit for possible TIA and for further monitoring given +COVID testing. 08/28/20 12:30 Dr. Young agrees to admit patient to his service Departure - Departure Time of Disposition: 12:30 Disposition: Admitted As Inpatient 67 Condition: Fair Clinical Impression: COVID-19, TIA (transient ischemic attack) - Discharge Information Referrals: Ishan Matute, [employer] [Primary Care Provider] - Sepsis Event Note (ED) - Focused Exam Vital Signs: Vital Signs Temp Pulse Resp BP Pulse Ox 08/28/20 09:44 96.6 F L 91 19 129/61 94 L - My Orders Last 24 Hours: My Active Orders 08/28/20 09:47 EKG Documentation Completion [RC] STAT Sodium Chloride 0.9% [Saline Flush] 10 ml FLUSH ASDIRECTED PRN Sodium Chloride 0.9% [Saline Flush] 2.5 ml FLUSH ASDIRECTED PRN 08/28/20 09:48 Cardiac Monitoring [RC] . DIRECTED Pulse Oximetry [RC] ASDIRECTED UA W/MERLIN RFLX IF INDICATED [URIN] Stat Saline Lock Insert [OM.PC] Stat 08/28/20 11:58 Urinary Catheter Assessment [RC] ASDIRECTED 08/28/20 12:00 Urinary Catheter Insertion [Insert Urinary Catheter] [OM.PC] Q24H - Assessment/Plan Last 24 Hours: My Active Orders 08/28/20 09:47 EKG Documentation Completion [RC] STAT Sodium Chloride 0.9% [Saline Flush] 10 ml FLUSH ASDIRECTED PRN Sodium Chloride 0.9% [Saline Flush] 2.5 ml FLUSH ASDIRECTED PRN 08/28/20 09:48 Cardiac Monitoring [RC] . DIRECTED Pulse Oximetry [RC] ASDIRECTED UA W/MERLIN RFLX IF INDICATED [URIN] Stat Saline Lock Insert [OM.PC] Stat 08/28/20 11:58 Urinary Catheter Assessment [RC] ASDIRECTED 08/28/20 12:00 Urinary Catheter Insertion [Insert Urinary Catheter] [OM.PC] Q24H
[2020-08-28 10:33] LABS: BLOOD UREA NITROGEN,BUN 37 mg/dL (7.0-18.0); CHLORIDE,CL 99 mmol/L (98-107); GLUCOSE RANDOM 109 mg/dL (74-106); POTASSIUM,K 5.1 mmol/L (3.5-5.1); SODIUM,NA 136 mmol/L (136-148)
--- NOTE | 2020-08-28 10:39 | CT ---
INDICATION: Code stroke. TECHNIQUE: CT images were acquired from foramen magnum to vertex without contrast. Axial coronal and sagittal reformatted images are reviewed. FINDINGS: The ventricles and subarachnoid spaces upper limits of normal for age no hydrocephalus. No acute hemorrhage. No mass effect. No midline shift. Preservation of sullivan-white interface. No CT evidence of acute infarction this time. Atherosclerotic arterial calcifications but no hyperdense cerebral artery sign. Bony calvarium unremarkable. IMPRESSION: No evidence of acute intracranial abnormality. Please note that all CT scans at this facility use dose modulation, iterative reconstruction, and/or weight-based dosing when appropriate to reduce radiation dose to as low as reasonably achievable. Dictated by Jett Alexander MD @ Aug 28 2020 10:35AM Signed by Dr. Jett Alexander @ Aug 28 2020 10:38AM
--- NOTE | 2020-08-28 11:00 | CR ---
INDICATION: Productive cough. TECHNIQUE: Upright portable AP image of the chest. COMPARISON: 07/08/2020. FINDINGS: Lordotic projection and relatively shallow inspiration. No obvious acute infiltrate. Previously demonstrated, rounded, roughly 3 cm lower right lung mass now partially obscured by the right hilum. Difficult to assess for interval change. No pleural effusion. Heart size within normal limits. Pulmonary veins possibly congested. Interval placement of Port-A-Cath in the SVC. IMPRESSION: 1. Shallow inspiration. No obvious acute infiltrate. 2. Possible venous congestion. 3. Rounded 3 cm mass in the lower right lung now partially obscured by the right hilum and difficult to assess for change. 4. Interval placement of Port-A-Cath. Dictated by Blake Samuel MD @ Aug 28 2020 10:53AM Signed by Dr. Blake Samuel @ Aug 28 2020 10:58AM
--- NOTE | 2020-08-28 11:40 | CT ---
DATE: 08/28/2020. CLINICAL HISTORY: Patient with acute onset of weakness and confusion. TECHNIQUE: Standard helical CT image acquisition through the head and neck was performed after intravenous contrast bolus enhancement. Multiplanar reconstructed images were performed and interpreted. COMPARISON: None. FINDINGS: Patient motion markedly degrades assessment of the cervical arterial vasculature. The origins of the great vessels are not included on the [id number]. The proximal segments of the great vessels are patent, noting mild atherosclerotic stenosis of the proximal right common carotid and left subclavian arteries. The origin of the right vertebral artery is patent. Probable moderate to severe atherosclerotic stenosis at the origin of the left vertebral artery. The common carotid arteries are patent. There is atherosclerotic plaque involving the bilateral carotid bifurcations and carotid bulbs. Degrees of resulting luminal stenoses involving the bilateral proximal ICAs is difficult to assess due to extensive patient motion; however, there appears to be mild luminal stenosis of the proximal right ICA (less than 50 percent by NASCET criteria) and moderate luminal stenosis of the proximal left ICA (50-60 percent by NASCET criteria). The rest of the cervical segments of the internal carotid arteries are patent up to their intracranial segments. The intracranial segments of the internal carotid arteries are patent, noting scattered atherosclerotic calcification involving cavernous and clinoid segments of the bilateral ICAs but without hemodynamically significant luminal stenosis. There are patent bilateral posterior communicating arteries visualized. The vertebral arteries are codominant. The cervical segments of the vertebral arteries are patent. The intracranial segments of the vertebral arteries are patent, noting mild atherosclerotic calcification of the bilateral intracranial segments. The middle cerebral arteries are normal without aneurysm or proximal occlusion identified. The anterior cerebral arteries are normal without aneurysm or proximal occlusion identified. The anterior communicating artery is well visualized and appears normal. The basilar artery is normal without aneurysm or occlusion. The posterior cerebral arteries are normal without aneurysm or proximal occlusion. There is normal opacification of major intracranial venous structures. The visualized lung apices are unremarkable The thyroid gland is unremarkable. There are degenerative changes in the cervical spine. Postsurgical changes related to prior ACDF at C5-C7. IMPRESSION: 1. No intracranial proximal large vessel occlusion or intracranial arterial hemodynamically significant luminal stenosis. 2. Markedly degraded CTA neck examination secondary to patient motion. Within this limitation, there appears to be moderate luminal stenosis of the proximal left ICA (50-60 percent by NASCET criteria) and mild luminal stenosis of the proximal right ICA (less than 50 percent by NASCET criteria) secondary to atherosclerosis. 3. Probable moderate to severe stenosis at the origin of the left vertebral artery. Please note that all CT scans at this facility use dose modulation, iterative reconstruction, and/or weight-based dosing when appropriate to reduce radiation dose to as low as reasonably achievable. Dictated by Donald Arora MD @ Aug 28 2020 11:01AM Signed by Dr. Donald Arora @ Aug 28 2020 11:39AM
[2020-08-28] MEDS ORDERED: oxyCODONE 5 MG Tab PO PRN (18:16)
[2020-08-28] MEDS: Insulin Aspart 100 Units/ML 3 ML Pen SUBCUT SCH (18:40)
--- NOTE | 2020-08-28 19:52 | PCM.HP.2 ---
H&P History of Present Illness - General Date of Service: 08/28/20 Admit Problem/Dx: Admission Diagnosis/Problem Admission Diagnosis/Problem TIA, Transient ischemic attack - History of Present Illness Initial Comments - Free Text/Narative: 69 yo male with pmh of widely metastatic small cell lung cancer, DM, and HTN who presented with altered mental status. reported that he woke up confused and unable to get up or answer questions appropriately. Home health nurse noted right sided weakness. He reportedly has a cough for five days. HE has been recovering from a right hip surgery three weeks ago. He takes 45mg of oxycontin and 10mg of oxycodone every 4hrs. He has been getting xrt to help control his pain. - Related Data Allergies/Adverse Reactions: Allergies Allergy/AdvReac Type Severity Reaction Status Date / Time No Known Allergies Allergy Verified 08/28/20 16:51 Home Medications: Home Meds Furosemide 40 mg PO DAILY 08/08/19 [History] Losartan [Cozaar] 100 mg PO DAILY 08/08/19 [History] Potassium Chloride 10 meq PO DAILY 08/08/19 [History] amLODIPine [Norvasc] 5 mg PO DAILY 08/08/19 [History] atorvaSTATin [Lipitor] 40 mg PO DAILY 08/08/19 [History] buPROPion HCL [Wellbutrin Xl] 300 mg PO DAILY 08/08/19 [History] metFORMIN HCl [Metformin HCl ER] 500 mg PO DAILY 08/08/19 [History] Albuterol Sulfate [Albuterol Sulfate Hfa] 1 puff INH ASDIRECTED 08/28/20 [History] oxyCODONE ER [OxyCONTIN] 35 mg PO Q12HR 08/28/20 [History] oxyCODONE HCl [oxyCODONE] 10 mg PO Q4H PRN 08/28/20 [History] Past Medical History HEENT History: Reports: Hard of Hearing, Other (See Below) Other HEENT History: wears glasses, has upper and lower dentures, sensorineural hearing loss Cardiovascular History: Reports: Angina, High Cholesterol, Hypertension, Other (See Below) Other Cardiovascular History: hyperlipidema, ischemic heart disease Respiratory History: Reports: COPD, SOB Gastrointestinal History: Reports: Other (See Below) Other Gastrointestinal History: Umbillical Hernia Genitourinary History: Reports: Other (See Below) Other Genitourinary History: testicular hypogonadism, Musculoskeletal History: Reports: Arthritis Neurological History: Reports: Neuropathy, Diabetic, Other (See Below) Other Neuro History: insomnia Psychiatric History: Reports: Anxiety, PTSD Other Psychiatric History: denies need for pre admit sedation Endocrine/Metabolic History: Reports: Diabetes, Type II, Obesity/BMI 30+ Hematologic History: Reports: None Immunologic History: Reports: None Oncologic (Cancer) History: Reports: None Dermatologic History: Reports: None - Past Surgical History Head Surgeries/Procedures: Reports: None HEENT Surgical History: Reports: None Cardiovascular Surgical History: Reports: None Respiratory Surgical History: Reports: None GI Surgical History: Reports: Colonoscopy, Hernia, Inguinal Male Surgical History: Reports: None Musculoskeletal Surgical History: Reports: None Oncologic Surgical History: Reports: None Dermatological Surgical History: Reports: None Social & Family History - Family History Family Medical History: Noncontributory - Tobacco Use Smoking Status *Q: Former Smoker Years of Tobacco use: 40 Used Tobacco, but Quit: Yes Month/Year Tobacco Last Used: May 2020 - Caffeine Use Caffeine Use: Reports: None - Recreational Drug Use Recreational Drug Use: No H&P Review of Systems - Review of Systems: Review Of Systems: Comprehensive ROS is negative, except as noted in HPI. Exam - Exam Exam: See Below - Vital Signs Vital Signs: Last Vital Signs Temp 37.2 C 08/28/20 14:31 Pulse 85 08/28/20 14:31 Resp 28 H 08/28/20 14:31 BP 125/46 L 08/28/20 14:31 Pulse Ox 96 08/28/20 14:31 Weight: 110 kg - Exam General: Lethargic. No: Severe Distress HEENT: Mucosa Moist & [place], Posterior Pharynx Clear Neck: Supple Lungs: Clear to Auscultation, Normal Respiratory Effort Cardiovascular: Regular Rate, Regular Rhythm GI/Abdominal Exam: Soft, Non-Tender Extremities: Non-Tender, No Pedal Edema Skin: Warm, Dry, Intact - Patient Data Lab Results Last 24 hrs: Laboratory Results - last 24 hr 08/28/20 08/28/20 08/28/20 Range/Units 09:45 09:45 09:45 WBC 6.40 (4.0-11.0) K/uL RBC 3.14 L (4.50-5.90) M/uL Hgb 9.0 L (13.0-17.0) g/dL Hct 29.3 L (38.0-50.0) % MCV 93.3 (80.0-98.0) fL MCH 28.7 (27.0-32.0) pg MCHC 30.7 L (31.0-37.0) g/dL RDW Std Deviation 55.2 (28.0-62.0) fl RDW Coeff of Glo 16 H (11.0-15.0) % Plt Count 210 (150-400) K/uL MPV 10.20 (7.40-12.00) fL Neut % (Auto) 82.2 H (48.0-80.0) % Lymph % (Auto) 11.4 L (16.0-40.0) % [place] % (Auto) 5.6 (0.0-15.0) % Eos % (Auto) 0.5 (0.0-7.0) % Baso % (Auto) 0.3 (0.0-1.5) % Neut # (Auto) 5.3 (1.4-5.7) K/uL Lymph # (Auto) 0.7 (0.6-2.4) K/uL [place] # (Auto) 0.4 (0.0-0.8) K/uL Eos # (Auto) 0.0 (0.0-0.7) K/uL Baso # (Auto) 0.0 (0.0-0.1) K/uL Nucleated RBC % 0.7 /100WBC Nucleated RBCs # 0 K/uL INR 1.05 APTT 20.5 (18.6-31.3) SEC Lactate 1.6 (0.20-2.00) mmol/L Sodium (136-148) mmol/L Potassium (3.5-5.1) mmol/L Chloride (98-107) mmol/L Carbon Dioxide (21.0-32.0) mmol/L BUN (7.0-18.0) mg/dL Creatinine (0.8-1.3) mg/dL Est Cr Clr Drug Dosing mL/min Estimated GFR (MDRD) ml/min Glucose (74-106) mg/dL POC Glucose (60-110) mg/dL Calcium (8.5-10.1) mg/dL Magnesium (1.8-2.4) mg/dL Total Bilirubin (0.2-1.0) mg/dL AST (15-37) IU/L ALT (14-63) IU/L Alkaline Phosphatase (46-116) U/L Troponin I (0.000-0.056) ng/mL C-Reactive Protein (0.00-0.90) mg/dL B-Natriuretic Peptide (<100) PG/ML Total Protein (6.4-8.2) g/dL Albumin (3.4-5.0) g/dL Globulin (2.6-4.0) g/dL Albumin/Globulin Ratio (0.9-1.6) Urine Color Urine Appearance Urine pH (5.0-8.0) Ur Specific [place] (1.001-1.035) Urine Protein (NEGATIVE) mg/dL Urine Glucose (UA) (NEGATIVE) mg/dL Urine Ketones (NEGATIVE) mg/dL Urine Occult Blood (NEGATIVE) Urine Nitrite (NEGATIVE) Urine Bilirubin (NEGATIVE) Urine Urobilinogen (<2.0) EU/dL Ur Leukocyte Esterase (NEGATIVE) SARS-CoV-2 RNA (CHRISTIANO) (NEGATIVE) 08/28/20 08/28/20 08/28/20 Range/Units 09:45 09:45 11:00 WBC (4.0-11.0) K/uL RBC (4.50-5.90) M/uL Hgb (13.0-17.0) g/dL Hct (38.0-50.0) % MCV (80.0-98.0) fL MCH (27.0-32.0) pg MCHC (31.0-37.0) g/dL RDW Std Deviation (28.0-62.0) fl RDW Coeff of Glo (11.0-15.0) % Plt Count (150-400) K/uL MPV (7.40-12.00) fL Neut % (Auto) (48.0-80.0) % Lymph % (Auto) (16.0-40.0) % [place] % (Auto) (0.0-15.0) % Eos % (Auto) (0.0-7.0) % Baso % (Auto) (0.0-1.5) % Neut # (Auto) (1.4-5.7) K/uL Lymph # (Auto) (0.6-2.4) K/uL [place] # (Auto) (0.0-0.8) K/uL Eos # (Auto) (0.0-0.7) K/uL Baso # (Auto) (0.0-0.1) K/uL Nucleated RBC % /100WBC Nucleated RBCs # K/uL INR APTT (18.6-31.3) SEC Lactate (0.20-2.00) mmol/L Sodium 136 (136-148) mmol/L Potassium 5.1 (3.5-5.1) mmol/L Chloride 99 (98-107) mmol/L Carbon Dioxide 29.0 (21.0-32.0) mmol/L BUN 37 H (7.0-18.0) mg/dL Creatinine 1.3 (0.8-1.3) mg/dL Est Cr Clr Drug Dosing 56.15 mL/min Estimated GFR (MDRD) 54.9 ml/min Glucose 109 H (74-106) mg/dL POC Glucose (60-110) mg/dL Calcium 12.3 H (8.5-10.1) mg/dL Magnesium 1.7 L (1.8-2.4) mg/dL Total Bilirubin 0.7 (0.2-1.0) mg/dL AST 158 H (15-37) IU/L ALT 51 (14-63) IU/L Alkaline Phosphatase 233 H (46-116) U/L Troponin I < 0.050 (0.000-0.056) ng/mL C-Reactive Protein 8.10 H (0.00-0.90) mg/dL B-Natriuretic Peptide 298 H (<100) PG/ML Total Protein 6.2 L (6.4-8.2) g/dL Albumin 2.9 L (3.4-5.0) g/dL Globulin 3.3 (2.6-4.0) g/dL Albumin/Globulin Ratio 0.9 (0.9-1.6) Urine Color Urine Appearance Urine pH (5.0-8.0) Ur Specific [place] (1.001-1.035) Urine Protein (NEGATIVE) mg/dL Urine Glucose (UA) (NEGATIVE) mg/dL Urine Ketones (NEGATIVE) mg/dL Urine Occult Blood (NEGATIVE) Urine Nitrite (NEGATIVE) Urine Bilirubin (NEGATIVE) Urine Urobilinogen (<2.0) EU/dL Ur Leukocyte Esterase (NEGATIVE) SARS-CoV-2 RNA (CHRISTIANO) POSITIVE H (NEGATIVE) 08/28/20 08/28/20 08/28/20 Range/Units 12:24 14:27 18:27 WBC (4.0-11.0) K/uL RBC (4.50-5.90) M/uL Hgb (13.0-17.0) g/dL Hct (38.0-50.0) % MCV (80.0-98.0) fL MCH (27.0-32.0) pg MCHC (31.0-37.0) g/dL RDW Std Deviation (28.0-62.0) fl RDW Coeff of Glo (11.0-15.0) % Plt Count (150-400) K/uL MPV (7.40-12.00) fL Neut % (Auto) (48.0-80.0) % Lymph % (Auto) (16.0-40.0) % [place] % (Auto) (0.0-15.0) % Eos % (Auto) (0.0-7.0) % Baso % (Auto) (0.0-1.5) % Neut # (Auto) (1.4-5.7) K/uL Lymph # (Auto) (0.6-2.4) K/uL [place] # (Auto) (0.0-0.8) K/uL Eos # (Auto) (0.0-0.7) K/uL Baso # (Auto) (0.0-0.1) K/uL Nucleated RBC % /100WBC Nucleated RBCs # K/uL INR APTT (18.6-31.3) SEC Lactate (0.20-2.00) mmol/L Sodium (136-148) mmol/L Potassium (3.5-5.1) mmol/L Chloride (98-107) mmol/L Carbon Dioxide (21.0-32.0) mmol/L BUN (7.0-18.0) mg/dL Creatinine (0.8-1.3) mg/dL Est Cr Clr Drug Dosing mL/min Estimated GFR (MDRD) ml/min Glucose (74-106) mg/dL POC Glucose 100 106 (60-110) mg/dL Calcium (8.5-10.1) mg/dL Magnesium (1.8-2.4) mg/dL Total Bilirubin (0.2-1.0) mg/dL AST (15-37) IU/L ALT (14-63) IU/L Alkaline Phosphatase (46-116) U/L Troponin I (0.000-0.056) ng/mL C-Reactive Protein (0.00-0.90) mg/dL B-Natriuretic Peptide (<100) PG/ML Total Protein (6.4-8.2) g/dL Albumin (3.4-5.0) g/dL Globulin (2.6-4.0) g/dL Albumin/Globulin Ratio (0.9-1.6) Urine Color YELLOW Urine Appearance CLEAR Urine pH 5.0 (5.0-8.0) Ur Specific [place] 1.015 (1.001-1.035) Urine Protein NEGATIVE (NEGATIVE) mg/dL Urine Glucose (UA) NEGATIVE (NEGATIVE) mg/dL Urine Ketones NEGATIVE (NEGATIVE) mg/dL Urine Occult Blood NEGATIVE (NEGATIVE) Urine Nitrite NEGATIVE (NEGATIVE) Urine Bilirubin NEGATIVE (NEGATIVE) Urine Urobilinogen 1.0 (<2.0) EU/dL Ur Leukocyte Esterase NEGATIVE (NEGATIVE) SARS-CoV-2 RNA (CHRISTIANO) (NEGATIVE) Result Diagrams: 08/28/20 09:45 08/28/20 09:45 Sepsis Event Note - Evaluation Sepsis Screening Result: No Definite Risk - Focused Exam Vital Signs: Vital Signs Temp Temp Pulse Pulse Resp BP BP 08/28/20 14:31 37.2 C 85 28 H 125/46 L 08/28/20 09:44 35.9 C L 91 19 129/61 Pulse Ox 08/28/20 14:31 96 08/28/20 09:44 94 L Problem List Initiated/Reviewed/Updated: Yes Orders Last 24hrs: Active Orders 24 hr Category Date Time Status Patient Status [ADT] Routine ADT 08/28/20 12:29 Active Blood Glucose Check, Bedside [RC] TIDMEALS Care 08/28/20 14:15 Active Cardiac Monitoring [RC] . DIRECTED Care 08/28/20 18:14 Active EKG Documentation Completion [RC] STAT Care 08/28/20 09:47 Active Nursing Bedside Swallow Screen [RC] ASDIRECTED Care 08/28/20 14:06 Active Telemetry Monitoring [Cardiac Monitoring] [RC] . Care 08/28/20 18:14 Active DIRECTED Urinary Catheter Insertion [Insert Urinary Catheter] [ Care 08/28/20 12:00 Ordered OM.PC] Q24H Vital Signs [RC] Q4H Care 08/28/20 14:52 Active ADA Diabetic [[employer] Diet] [DIET Diet 08/28/20 Lunch Active ] Brain w wo Cont [MR] Routine Exams 08/28/20 14:24 Ordered Insulin Aspart [NovoLOG] Med 08/28/20 17:00 Active See Protocol SUBCUT TIDAC Sodium Chloride 0.9% [Saline Flush] Med 08/28/20 09:47 Active 10 ml FLUSH ASDIRECTED PRN Sodium Chloride 0.9% [Saline Flush] Med 08/28/20 09:47 Active 2.5 ml FLUSH ASDIRECTED PRN oxyCODONE Med 08/28/20 18:16 Active 10 mg PO Q4H PRN oxyCODONE ER [OxyCONTIN] Med 08/28/20 21:00 Active 10 mg PO Q12HR oxyCODONE ER [OxyCONTIN] Med 08/28/20 21:00 Active 20 mg PO Q12HR Saline Lock Insert [OM.PC] Stat Oth 08/28/20 09:48 Ordered Medication Orders Insulin Aspart (Novolog) 0 unit SUBCUT TIDAC DANA; Protocol Last Admin: 08/28/20 18:40 Dose: Not Given Documented by: PROFLUC Oxycodone HCl (Oxycodone) 10 mg PO Q4H PRN PRN Reason: Pain Last Admin: 08/28/20 18:30 Dose: 10 mg Documented by: PROFLUC Oxycodone HCl (Oxycontin) 20 mg PO Q12HR DANA Oxycodone HCl (Oxycontin) 10 mg PO Q12HR DANA Sodium Chloride (Saline Flush) 10 ml FLUSH ASDIRECTED PRN PRN Reason: Keep Vein Open Last Admin: 08/28/20 12:05 Dose: 10 ml Documented by: [id number] Sodium Chloride (Saline Flush) 2.5 ml FLUSH ASDIRECTED PRN PRN Reason: Keep Vein Open Last Admin: 08/28/20 12:05 Dose: 2.5 ml Documented by: [id number] Assessment/Plan Comment:: 69 yo male admitted with altered mental status and COVID Altered mental status/delerium: MRI brain ordered, avoid sedating medications Hypercalcemia: Hydrate and will recheck if not improving consider calcitonin COVID: requiring 2 L oxygen NC, will start Dexamethason, Lovenox, and Remdesivir. His Rosa has consented to Remdesivir use confirmed DNR/DNI status
[2020-08-28] MEDS ORDERED: oxyCODONE ER 20 MG TAB.ER PO SCH ×2 (21:00)
[2020-08-28] MEDS ORDERED: oxyCODONE ER 10 MG TAB.ER PO SCH (21:00)
[2020-08-28] MEDS ORDERED: REMDESIVIR 200 MG in Sodium Chloride 0.9% 250 ML IV ONE (22:53)
[2020-08-28] MEDS ORDERED: Sodium Chloride 0.9% 1,000 ML IV ONE (22:53)
[2020-08-28] MEDS ORDERED: Ondansetron 4 MG/2 ML SDV IVPUSH PRN (22:55)
[2020-08-28] MEDS ORDERED: Sodium Chloride 0.9% 1,000 ML IV SCH (23:00)
[2020-08-28] MEDS ORDERED: Enoxaparin 40 MG/0.4 ML Syringe SUBCUT SCH (23:00)
[2020-08-28] MEDS ORDERED: Dexamethasone 10 MG/ML SDV IVPUSH SCH (23:00)
[2020-08-29] MEDS ORDERED: Magnesium Sulfate/Water 2 GM/50 ML BAG IV ONE (02:56)
[2020-08-29] MEDS: Morphine 2 MG/ML SYRINGE IVPUSH PRN ×5 (03:22→20:24)
[2020-08-29 06:11] LABS: CARBON DIOXIDE,CO2 25.6 mmol/L (21.0-32.0); POTASSIUM,K 5.3 mmol/L (3.5-5.1)
[2020-08-29] MEDS: Insulin Aspart 100 Units/ML 3 ML Pen SUBCUT SCH ×2 (06:29→14:31)
[2020-08-29] MEDS: LORazepam 2 MG/ML SDV IVPUSH PRN ×2 (06:51→11:11)
--- NOTE | 2020-08-29 07:15 | CR ---
INDICATION: Bilateral lung crackles. Respiratory congestion. TECHNIQUE: AP portable supine chest. COMPARISON: August 28, 2020. FINDINGS: Progressive right perihilar/mid lung infiltrate. Previous identified more localized mass superior segment right lower lobe is obscured. Increased interstitial markings suggestive of some degree of edema. Overall heart size is within normal limits accounting for technique. Right-sided Port-A-Cath its lead tip in the mid superior vena cava. Postsurgical change from cervical spine fusion. IMPRESSION: 1. Increase in the right perihilar/mid lung opacity compatible with active pneumonia. There may be an underlying mass as was suggested on the prior chest x-ray. Consider chest CT. There was a rounded mass in this location on an older chest x-ray July 08, 2020. 2. Interstitial prominence likely reflecting some degree of edema. 3. Right-sided Port-A-Cath. Dictated by Jett Live MD @ Aug 29 2020 7:10AM Signed by Dr. Jett Live @ Aug 29 2020 7:13AM
[2020-08-29] MEDS ORDERED: Furosemide 40 MG/4 ML VIAL IVPUSH ONE (09:47)
[2020-08-29] MEDS ORDERED: Azithromycin 500 MG in Sodium Chloride 0.9% 250 ML IV SCH (10:00)
[2020-08-29] MEDS ORDERED: cefTRIAXone 1 GM in Premix Bag 1 BAG IV SCH (10:00)
[2020-08-29] MEDS ORDERED: Calcitonin (Salmon) 200 Units/ML 2 ML MDV SUBCUT ONE ×2 (10:45)
--- NOTE | 2020-08-29 12:22 | PCM.PN ---
- General Info Date of Service: 08/29/20 - Review of Systems Systems Review Comment:: patient obtunded - Patient Data Vitals - Most Recent: Last Vital Signs Temp 38.0 C 08/29/20 09:13 Pulse 105 H 08/29/20 09:13 Resp 45 H 08/29/20 09:13 BP 122/64 08/29/20 09:13 Pulse Ox 91 L 08/29/20 09:13 Weight - Most Recent: 110 kg I&O - Last 24 Hours: Intake & Output 08/28/20 08/29/20 08/29/20 22:59 06:59 14:59 Intake Total 500 Output Total 550 Balance -50 Lab Results Last 24 Hours: Laboratory Results - last 24 hr 08/28/20 08/28/20 08/28/20 Range/Units 11:00 12:24 14:27 WBC (4.0-11.0) K/uL RBC (4.50-5.90) M/uL Hgb (13.0-17.0) g/dL Hct (38.0-50.0) % MCV (80.0-98.0) fL MCH (27.0-32.0) pg MCHC (31.0-37.0) g/dL RDW Std Deviation (28.0-62.0) fl RDW Coeff of Glo (11.0-15.0) % Plt Count (150-400) K/uL MPV (7.40-12.00) fL Neut % (Auto) (48.0-80.0) % Lymph % (Auto) (16.0-40.0) % [place] % (Auto) (0.0-15.0) % Eos % (Auto) (0.0-7.0) % Baso % (Auto) (0.0-1.5) % Neut # (Auto) (1.4-5.7) K/uL Lymph # (Auto) (0.6-2.4) K/uL [place] # (Auto) (0.0-0.8) K/uL Eos # (Auto) (0.0-0.7) K/uL Baso # (Auto) (0.0-0.1) K/uL Nucleated RBC % /100WBC Nucleated RBCs # K/uL Sodium (136-148) mmol/L Potassium (3.5-5.1) mmol/L Chloride (98-107) mmol/L Carbon Dioxide (21.0-32.0) mmol/L BUN (7.0-18.0) mg/dL Creatinine (0.8-1.3) mg/dL Est Cr Clr Drug Dosing mL/min Estimated GFR (MDRD) ml/min Glucose (74-106) mg/dL POC Glucose 100 (60-110) mg/dL Calcium (8.5-10.1) mg/dL Total Bilirubin (0.2-1.0) mg/dL AST (15-37) IU/L ALT (14-63) IU/L Alkaline Phosphatase (46-116) U/L Total Protein (6.4-8.2) g/dL Albumin (3.4-5.0) g/dL Globulin (2.6-4.0) g/dL Albumin/Globulin Ratio (0.9-1.6) Urine Color YELLOW Urine Appearance CLEAR Urine pH 5.0 (5.0-8.0) Ur Specific [place] 1.015 (1.001-1.035) Urine Protein NEGATIVE (NEGATIVE) mg/dL Urine Glucose (UA) NEGATIVE (NEGATIVE) mg/dL Urine Ketones NEGATIVE (NEGATIVE) mg/dL Urine Occult Blood NEGATIVE (NEGATIVE) Urine Nitrite NEGATIVE (NEGATIVE) Urine Bilirubin NEGATIVE (NEGATIVE) Urine Urobilinogen 1.0 (<2.0) EU/dL Ur Leukocyte Esterase NEGATIVE (NEGATIVE) SARS-CoV-2 RNA (CHRISTIANO) POSITIVE H (NEGATIVE) 08/28/20 08/29/20 08/29/20 Range/Units 18:27 05:40 05:40 WBC 6.13 (4.0-11.0) K/uL RBC 2.94 L (4.50-5.90) M/uL Hgb 8.5 L (13.0-17.0) g/dL Hct 27.5 L (38.0-50.0) % MCV 93.5 (80.0-98.0) fL MCH 28.9 (27.0-32.0) pg MCHC 30.9 L (31.0-37.0) g/dL RDW Std Deviation 55.3 (28.0-62.0) fl RDW Coeff of Glo 16 H (11.0-15.0) % Plt Count 192 (150-400) K/uL MPV 10.10 (7.40-12.00) fL Neut % (Auto) 87.1 H (48.0-80.0) % Lymph % (Auto) 8.0 L (16.0-40.0) % [place] % (Auto) 4.7 (0.0-15.0) % Eos % (Auto) 0.2 (0.0-7.0) % Baso % (Auto) 0.0 (0.0-1.5) % Neut # (Auto) 5.3 (1.4-5.7) K/uL Lymph # (Auto) 0.5 L (0.6-2.4) K/uL [place] # (Auto) 0.3 (0.0-0.8) K/uL Eos # (Auto) 0.0 (0.0-0.7) K/uL Baso # (Auto) 0.0 (0.0-0.1) K/uL Nucleated RBC % 0.9 /100WBC Nucleated RBCs # 0 K/uL Sodium 138 (136-148) mmol/L Potassium 5.3 H (3.5-5.1) mmol/L Chloride 101 (98-107) mmol/L Carbon Dioxide 25.6 (21.0-32.0) mmol/L BUN 39 H (7.0-18.0) mg/dL Creatinine 1.3 (0.8-1.3) mg/dL Est Cr Clr Drug Dosing 56.15 mL/min Estimated GFR (MDRD) 54.9 ml/min Glucose 116 H (74-106) mg/dL POC Glucose 106 (60-110) mg/dL Calcium 11.8 H (8.5-10.1) mg/dL Total Bilirubin 0.5 (0.2-1.0) mg/dL AST 154 H (15-37) IU/L ALT 50 (14-63) IU/L Alkaline Phosphatase 216 H (46-116) U/L Total Protein 5.9 L (6.4-8.2) g/dL Albumin 2.6 L (3.4-5.0) g/dL Globulin 3.3 (2.6-4.0) g/dL Albumin/Globulin Ratio 0.8 L (0.9-1.6) Urine Color Urine Appearance Urine pH (5.0-8.0) Ur Specific [place] (1.001-1.035) Urine Protein (NEGATIVE) mg/dL Urine Glucose (UA) (NEGATIVE) mg/dL Urine Ketones (NEGATIVE) mg/dL Urine Occult Blood (NEGATIVE) Urine Nitrite (NEGATIVE) Urine Bilirubin (NEGATIVE) Urine Urobilinogen (<2.0) EU/dL Ur Leukocyte Esterase (NEGATIVE) SARS-CoV-2 RNA (CHRISTIANO) (NEGATIVE) 08/29/20 Range/Units 05:48 WBC (4.0-11.0) K/uL RBC (4.50-5.90) M/uL Hgb (13.0-17.0) g/dL Hct (38.0-50.0) % MCV (80.0-98.0) fL MCH (27.0-32.0) pg MCHC (31.0-37.0) g/dL RDW Std Deviation (28.0-62.0) fl RDW Coeff of Glo (11.0-15.0) % Plt Count (150-400) K/uL MPV (7.40-12.00) fL Neut % (Auto) (48.0-80.0) % Lymph % (Auto) (16.0-40.0) % [place] % (Auto) (0.0-15.0) % Eos % (Auto) (0.0-7.0) % Baso % (Auto) (0.0-1.5) % Neut # (Auto) (1.4-5.7) K/uL Lymph # (Auto) (0.6-2.4) K/uL [place] # (Auto) (0.0-0.8) K/uL Eos # (Auto) (0.0-0.7) K/uL Baso # (Auto) (0.0-0.1) K/uL Nucleated RBC % /100WBC Nucleated RBCs # K/uL Sodium (136-148) mmol/L Potassium (3.5-5.1) mmol/L Chloride (98-107) mmol/L Carbon Dioxide (21.0-32.0) mmol/L BUN (7.0-18.0) mg/dL Creatinine (0.8-1.3) mg/dL Est Cr Clr Drug Dosing mL/min Estimated GFR (MDRD) ml/min Glucose (74-106) mg/dL POC Glucose 104 (60-110) mg/dL Calcium (8.5-10.1) mg/dL Total Bilirubin (0.2-1.0) mg/dL AST (15-37) IU/L ALT (14-63) IU/L Alkaline Phosphatase (46-116) U/L Total Protein (6.4-8.2) g/dL Albumin (3.4-5.0) g/dL Globulin (2.6-4.0) g/dL Albumin/Globulin Ratio (0.9-1.6) Urine Color Urine Appearance Urine pH (5.0-8.0) Ur Specific [place] (1.001-1.035) Urine Protein (NEGATIVE) mg/dL Urine Glucose (UA) (NEGATIVE) mg/dL Urine Ketones (NEGATIVE) mg/dL Urine Occult Blood (NEGATIVE) Urine Nitrite (NEGATIVE) Urine Bilirubin (NEGATIVE) Urine Urobilinogen (<2.0) EU/dL Ur Leukocyte Esterase (NEGATIVE) SARS-CoV-2 RNA (CHRISTIANO) (NEGATIVE) Med Orders - Current: Current Medications Enoxaparin Sodium (Lovenox) 40 mg SUBCUT Q24H [facility] Last Admin: 08/28/20 23:32 Dose: 40 mg Documented by: Insulin Aspart (Novolog) 0 unit SUBCUT TIDAC [facility]; Protocol Last Admin: 08/29/20 06:29 Dose: Not Given Documented by: Lorazepam (Ativan) 1 mg IVPUSH Q4H PRN PRN Reason: Anxiety Last Admin: 08/29/20 11:11 Dose: 1 mg Documented by: Morphine Sulfate (Morphine) 2 mg IVPUSH Q2H PRN PRN Reason: Pain (severe 7-10) Stop: 08/29/20 22:55 Last Admin: 08/29/20 08:39 Dose: 2 mg Documented by: Ondansetron HCl (Zofran) 4 mg IVPUSH Q4H PRN PRN Reason: Nausea Oxycodone HCl (Oxycodone) 10 mg PO Q4H PRN PRN Reason: Pain Last Admin: 08/28/20 18:30 Dose: 10 mg Documented by: Sodium Chloride (Saline Flush) 10 ml FLUSH ASDIRECTED PRN PRN Reason: Keep Vein Open Last Admin: 08/28/20 12:05 Dose: 10 ml Documented by: Sodium Chloride (Saline Flush) 2.5 ml FLUSH ASDIRECTED PRN PRN Reason: Keep Vein Open Last Admin: 08/28/20 12:05 Dose: 2.5 ml Documented by: Discontinued Medications Calcitonin [place] (Miacalcin) 400 units SUBCUT ONETIME ONE Stop: 08/29/20 10:46 Last Admin: 08/29/20 10:57 Dose: Not Given Documented by: Dexamethasone (Dexamethasone) 6 mg IVPUSH Q24H DANA Last Admin: 08/28/20 23:35 Dose: 6 mg Documented by: Furosemide (Lasix) 40 mg IVPUSH NOW ONE Stop: 08/29/20 09:48 Last Admin: 08/29/20 10:28 Dose: 40 mg Documented by: Sodium Chloride (Normal Saline) 1,000 mls @ 999 mls/hr IV .Bolus ONE Stop: 08/28/20 23:53 Last Admin: 08/28/20 23:23 Dose: 999 mls/hr Documented by: Remdesivir 200 mg/ Sodium (Chloride) 250 mls @ 250 mls/hr IV ONETIME ONE Stop: 08/28/20 22:54 Last Admin: 08/29/20 00:30 Dose: 250 mls/hr Documented by: Remdesivir 100 mg/ Sodium (Chloride) 100 mls @ 100 mls/hr IV Q24H DANA Stop: 09/02/20 00:59 Sodium Chloride (Normal Saline) 1,000 mls @ 200 mls/hr IV ASDIRECTED [facility] Last Admin: 08/29/20 01:44 Dose: 200 mls/hr Documented by: Magnesium Sulfate (Magnesium Sulfate In Water Premix) 2 gm in 50 mls @ 50 mls/hr IV ONETIME ONE Stop: 08/29/20 03:55 Last Admin: 08/29/20 03:17 Dose: 50 mls/hr Documented by: Azithromycin 500 mg/ Sodium (Chloride) 250 mls @ 250 mls/hr IV DAILY [facility] Last Admin: 08/29/20 10:37 Dose: 250 mls/hr Documented by: Ceftriaxone Sodium/Dextrose 1 (gm/ Premix) 50 mls @ 100 mls/hr IV Q24H [facility] Last Admin: 08/29/20 10:32 Dose: 100 mls/hr Documented by: Oxycodone HCl (Oxycontin) 20 mg PO Q12HR [facility] Last Admin: 08/28/20 21:10 Dose: 20 mg Documented by: Oxycodone HCl (Oxycontin) 10 mg PO Q12HR [facility] Last Admin: 08/28/20 21:10 Dose: 10 mg Documented by: - Exam General: Alert, Oriented Neck: Supple Lungs: Clear to Auscultation, Normal Respiratory Effort Cardiovascular: Regular Rate, Regular Rhythm GI/Abdominal Exam: Normal Bowel Sounds, Soft, Non-Tender, No Distention Extremities: Non-Tender, No Pedal Edema Skin: Warm, Dry, Intact Neurological: No New Focal Deficit Sepsis Event Note - Evaluation Sepsis Screening Result: No Definite Risk - Focused Exam Vital Signs: Vital Signs Temp Pulse Resp BP Pulse Ox 08/29/20 09:13 38.0 C 105 H 45 H 122/64 91 L 08/29/20 03:46 36.7 C 90 18 113/45 L 92 L 08/29/20 01:45 127/64 - Problem List Review Problem List Initiated/Reviewed/Updated: Yes - My Orders Last 24 Hours: My Active Orders 08/28/20 14:06 Nursing Bedside Swallow Screen [RC] ASDIRECTED 08/28/20 14:15 Blood Glucose Check, Bedside [RC] TIDMEALS 08/28/20 14:24 Brain w wo Cont [MR] Routine 08/28/20 14:52 Vital Signs [RC] Q4H 08/28/20 17:00 Insulin Aspart [NovoLOG] See Protocol SUBCUT TIDAC 08/28/20 18:16 oxyCODONE 10 mg PO Q4H PRN 08/28/20 22:55 Oxygen Therapy [RC] PRN VTE/DVT Education [RC] PER UNIT ROUTINE Vital Signs [RC] Q4H Morphine 2 mg IVPUSH Q2H PRN Ondansetron [Zofran] 4 mg IVPUSH Q4H PRN Sequential Compression Device [OM.PC] Per Unit Routine 08/28/20 22:56 Antiembolic Devices [RC] PER UNIT ROUTINE 08/28/20 23:00 Enoxaparin [Lovenox] 40 mg SUBCUT Q24H 10/01/20 06:31 LORazepam [Ativan] 1 mg IVPUSH Q4H PRN 08/29/20 12:04 Code Status [Resuscitation Status] Routine 08/29/20 12:18 Morphine 2 mg IVPUSH Q1H PRN - Plan Plan:: 69 yo male admitted with altered mental status and COVID. Since admission his condition has worsened with acute hypoxic respiratory failure and worsening mental status. Repeat CXR shows increase in infiltrates. Patient given Rocephin, azithromycin and lasix this morning with minimal improvement. I spoke with Rosa over the phone and will transition to comfort measures only.
[2020-08-30] MEDS ORDERED: REMDESIVIR 100 MG in Sodium Chloride 0.9% 100 ML IV SCH ×2
[2020-08-30] MEDS: LORazepam 2 MG/ML SDV IVPUSH PRN ×2 (00:35→04:46)
[2020-08-30] MEDS: Morphine 4 MG/ML Syringe IVPUSH PRN ×10 (08:49→23:46)
[2020-08-30] MEDS: Atropine 1% Ophth Soln 5 ML BOTTLE SL PRN ×4 (10:21→22:04)
--- NOTE | 2020-08-30 11:29 | PCM.PN ---
- General Info Date of Service: 08/30/20 Admission Dx/Problem (Free Text): Admission Diagnosis/Problem Admission Diagnosis/Problem TIA, Transient ischemic attack Subjective Update: seen at bedside, resting comfortably - Review of Systems General: Denies: Fever, Weakness, Fatigue Systems Review Comment:: unable to obtain - Patient Data Vitals - Most Recent: Last Vital Signs Temp 37.6 C 08/30/20 07:57 Pulse 97 08/30/20 07:57 Resp 42 H 08/30/20 07:57 BP 125/49 L 08/30/20 07:57 Pulse Ox 91 L 08/30/20 07:57 Weight - Most Recent: 110 kg Med Orders - Current: Current Medications Atropine Sulfate (Atropine 1% Oph Soln) 0 ml SL Q2H PRN PRN Reason: secretions Last Admin: 08/30/20 10:21 Dose: 1 ml Documented by: Lorazepam (Ativan) 1 mg IVPUSH Q4H PRN PRN Reason: Anxiety Last Admin: 08/30/20 04:46 Dose: 1 mg Documented by: Morphine Sulfate (Morphine) 4 mg IVPUSH Q30M PRN PRN Reason: dyspnea/airhunger Last Admin: 08/30/20 10:18 Dose: 4 mg Documented by: Ondansetron HCl (Zofran) 4 mg IVPUSH Q4H PRN PRN Reason: Nausea Sodium Chloride (Saline Flush) 10 ml FLUSH ASDIRECTED PRN PRN Reason: Keep Vein Open Last Admin: 08/28/20 12:05 Dose: 10 ml Documented by: Sodium Chloride (Saline Flush) 2.5 ml FLUSH ASDIRECTED PRN PRN Reason: Keep Vein Open Last Admin: 08/28/20 12:05 Dose: 2.5 ml Documented by: Discontinued Medications Calcitonin [place] (Miacalcin) 400 units SUBCUT ONETIME ONE Stop: 08/29/20 10:46 Last Admin: 08/29/20 10:57 Dose: Not Given Documented by: Dexamethasone (Dexamethasone) 6 mg IVPUSH Q24H [facility] Last Admin: 08/28/20 23:35 Dose: 6 mg Documented by: Enoxaparin Sodium (Lovenox) 40 mg SUBCUT Q24H [facility] Last Admin: 08/28/20 23:32 Dose: 40 mg Documented by: Furosemide (Lasix) 40 mg IVPUSH NOW ONE Stop: 08/29/20 09:48 Last Admin: 08/29/20 10:28 Dose: 40 mg Documented by: Sodium Chloride (Normal Saline) 1,000 mls @ 999 mls/hr IV .Bolus ONE Stop: 08/28/20 23:53 Last Admin: 08/28/20 23:23 Dose: 999 mls/hr Documented by: Remdesivir 200 mg/ Sodium (Chloride) 250 mls @ 250 mls/hr IV ONETIME ONE Stop: 08/28/20 22:54 Last Admin: 08/29/20 00:30 Dose: 250 mls/hr Documented by: Remdesivir 100 mg/ Sodium (Chloride) 100 mls @ 100 mls/hr IV Q24H [facility] Stop: 09/02/20 00:59 Sodium Chloride (Normal Saline) 1,000 mls @ 200 mls/hr IV ASDIRECTED [facility] Last Admin: 08/29/20 01:44 Dose: 200 mls/hr Documented by: Magnesium Sulfate (Magnesium Sulfate In Water Premix) 2 gm in 50 mls @ 50 mls/hr IV ONETIME ONE Stop: 08/29/20 03:55 Last Admin: 08/29/20 03:17 Dose: 50 mls/hr Documented by: Azithromycin 500 mg/ Sodium (Chloride) 250 mls @ 250 mls/hr IV DAILY [facility] Last Admin: 08/29/20 10:37 Dose: 250 mls/hr Documented by: Ceftriaxone Sodium/Dextrose 1 (gm/ Premix) 50 mls @ 100 mls/hr IV Q24H [facility] Last Admin: 08/29/20 10:32 Dose: 100 mls/hr Documented by: [facility]ulin [facility] ([facility] Protocol Last Admin: 08/29/20 14:31 Dose: Not Given Documented by: Morphine Sulfate (Morphine) 2 mg IVPUSH Q2H PRN PRN Reason: Pain (severe 7-10) Stop: 08/29/20 22:55 Last Admin: 08/29/20 08:39 Dose: 2 mg Documented by: Morphine Sulfate (Morphine) 2 mg IVPUSH Q1H PRN PRN Reason: Pain (severe 7-10) Stop: 08/29/20 22:55 Last Admin: 08/29/20 20:24 Dose: 2 mg Documented by: Oxycodone HCl (Oxycodone) 10 mg PO Q4H PRN PRN Reason: Pain Last Admin: 08/28/20 18:30 Dose: 10 mg Documented by: Oxycodone HCl (Oxycontin) 20 mg PO Q12HR [facility] Last Admin: 08/28/20 21:10 Dose: 20 mg Documented by: Oxycodone HCl (Oxycontin) 10 mg PO Q12HR [facility] Last Admin: 08/28/20 21:10 Dose: 10 mg Documented by: - Exam Quality Assessment: Supplemental Oxygen General: No Acute Distress Neck: Supple Lungs: Decreased Breath Sounds Cardiovascular: Regular Rate, Regular Rhythm GI/Abdominal Exam: Soft, Non-Tender. No: Normal Bowel Sounds Sepsis Event Note - Evaluation Sepsis Screening Result: Sepsis Risk - Focused Exam Vital Signs: Vital Signs Temp Pulse Resp BP Pulse Ox 08/30/20 07:57 37.6 C 97 42 H 125/49 L 91 L - Problem List & Annotations (1) Acute respiratory failure with hypoxia SNOMED Code(s): 98002281, 708194893 Code(s): J96.01 - ACUTE RESPIRATORY FAILURE WITH HYPOXIA Status: Acute Current Visit: Yes (2) COVID-19 SNOMED Code(s): 993081916 Code(s): U07.1 - COVID-19 Status: Acute Current Visit: Yes (3) COLD, Chronic obstructive lung disease SNOMED Code(s): 95427452 Code(s): J44.9 - CHRONIC OBSTRUCTIVE PULMONARY DISEASE, UNSPECIFIED Status: Acute Current Visit: No - Problem List Review Problem List Initiated/Reviewed/Updated: Yes - Plan Plan:: 69 yo male admitted with altered mental status and COVID. cont supportive care for comfort palliative measures
[2020-08-30] MEDS ORDERED: Scopolamine 1.5 MG Transdermal Patch TRDERM PRN (16:14)
[2020-08-30 20:26] VITALS: PULSE 143
[2020-08-30 20:28] VITALS: BP 81/44
--- NOTE | 2020-09-26 00:11 | PCM.DCSUM1 ---
Discharge Summary - Hospital Course Free Text/Narrative:: 69 yo male with pmh of widely metastatic small cell lung cancer, DM, and HTN who presented with altered mental status. reported that he woke up confused and unable to get up or answer questions appropriately. Home health nurse noted right sided weakness. He reportedly has a cough for five days. HE has been recovering from a right hip surgery three weeks ago. He takes 45mg of oxycontin and 10mg of oxycodone every 4hrs. He has been getting xrt to help control his pain. He was found to be hypoxic with COVID positive Patient was admitted with altered mental status and COVID requiring 2 L oxygen NC, started Dexamethason, Lovenox, and Remdesivir. His Rosa has consented to Remdesivir use, patient was DNR/DNI, later his conditioned worsened his oxygen requirement went up, he became obtunded, patient was eventually transitioned to comfort care/pallative measures upon families request, stared on morphine and Ativan for comfort as needed. Patient peacefully under comfort care measures, family notified. - Discharge Data Discharge Date: 08/31/20 Discharge Disposition: 20 Condition: - Referral to Home Health Primary Care Physician: Ishan Matute NP - Discharge Diagnosis/Problem(s) (1) Acute respiratory failure with hypoxia SNOMED Code(s): 04711326, 159353876 ICD Code: J96.01 - ACUTE RESPIRATORY FAILURE WITH HYPOXIA Status: Acute (2) COVID-19 SNOMED Code(s): 220300061 ICD Code: U07.1 - COVID-19 Status: Acute (3) COLD, Chronic obstructive lung disease SNOMED Code(s): 05702437 ICD Code: J44.9 - CHRONIC OBSTRUCTIVE PULMONARY DISEASE, UNSPECIFIED Status: Acute - Discharge Plan Home Medications: Home Meds Furosemide 40 mg PO DAILY 08/08/19 [History] Losartan [Cozaar] 100 mg PO DAILY 08/08/19 [History] Potassium Chloride 10 meq PO DAILY 08/08/19 [History] amLODIPine [Norvasc] 5 mg PO DAILY 08/08/19 [History] atorvaSTATin [Lipitor] 40 mg PO DAILY 08/08/19 [History] buPROPion HCL [Wellbutrin Xl] 300 mg PO DAILY 08/08/19 [History] metFORMIN HCl [Metformin HCl ER] 500 mg PO DAILY 08/08/19 [History] Albuterol Sulfate [Albuterol Sulfate Hfa] 1 puff INH ASDIRECTED 08/28/20 [History] oxyCODONE ER [OxyCONTIN] 30 mg PO Q12HR 08/28/20 [History] oxyCODONE HCl [oxyCODONE] 10 mg PO Q4H PRN 08/28/20 [History] Forms: ED Department Discharge Referrals: Ishan Matute NP [Primary Care Provider] - - Discharge Summary/Plan Comment DC Time >30 min.: No - Patient Data Vitals - Most Recent: Last Vital Signs Temp 37.8 C 08/30/20 23:59 Pulse 143 H 08/30/20 20:23 Resp 40 H 08/30/20 20:23 BP 81/44 L 08/30/20 20:23 Pulse Ox 91 L 08/30/20 20:23 Weight - Most Recent: 110 kg Med Orders - Current: Current Medications Discontinued Medications Atropine Sulfate (Atropine 1% [facility]) 0 ml SL Q2H PRN PRN Reason: secretions Last Admin: 08/30/20 22:04 Dose: 1 ml Documented by: Calcitonin [place] (Miacalcin) 400 units SUBCUT ONETIME ONE Stop: 08/29/20 10:46 Last Admin: 08/29/20 10:57 Dose: Not Given Documented by: Dexamethasone (Dexamethasone) 6 mg IVPUSH Q24H [facility] Last Admin: 08/28/20 23:35 Dose: 6 mg Documented by: Enoxaparin Sodium (Lovenox) 40 mg SUBCUT Q24H [facility] Last Admin: 08/28/20 23:32 Dose: 40 mg Documented by: Furosemide (Lasix) 40 mg IVPUSH NOW ONE Stop: 08/29/20 09:48 Last Admin: 08/29/20 10:28 Dose: 40 mg Documented by: Sodium Chloride (Normal Saline) 1,000 mls @ 999 mls/hr IV .Bolus ONE Stop: 08/28/20 23:53 Last Admin: 08/28/20 23:23 Dose: 999 mls/hr Documented by: Remdesivir 200 mg/ Sodium (Chloride) 250 mls @ 250 mls/hr IV ONETIME ONE Stop: 08/28/20 22:54 Last Admin: 08/29/20 00:30 Dose: 250 mls/hr Documented by: Remdesivir 100 mg/ Sodium (Chloride) 100 mls @ 100 mls/hr IV Q24H [facility] Stop: 09/02/20 00:59 Sodium Chloride (Normal Saline) 1,000 mls @ 200 mls/hr IV ASDIRECTED [facility] Last Admin: 08/29/20 01:44 Dose: 200 mls/hr Documented by: Magnesium Sulfate (Magnesium Sulfate In Water Premix) 2 gm in 50 mls @ 50 mls/hr IV ONETIME ONE Stop: 08/29/20 03:55 Last Admin: 08/29/20 03:17 Dose: 50 mls/hr Documented by: Azithromycin 500 mg/ Sodium (Chloride) 250 mls @ 250 mls/hr IV DAILY [facility] Last Admin: 08/29/20 10:37 Dose: 250 mls/hr Documented by: Ceftriaxone Sodium/Dextrose 1 (gm/ Premix) 50 mls @ 100 mls/hr IV Q24H [facility] Last Admin: 08/29/20 10:32 Dose: 100 mls/hr Documented by: Insulin Aspart (Novolog) 0 unit SUBCUT TIDAC [facility]; Protocol Last Admin: 08/29/20 14:31 Dose: Not Given Documented by: Lorazepam (Ativan) 1 mg IVPUSH Q4H PRN PRN Reason: Anxiety Last Admin: 08/30/20 04:46 Dose: 1 mg Documented by: Morphine Sulfate (Morphine) 2 mg IVPUSH Q2H PRN PRN Reason: Pain (severe 7-10) Stop: 08/29/20 22:55 Last Admin: 08/29/20 08:39 Dose: 2 mg Documented by: Morphine Sulfate (Morphine) 2 mg IVPUSH Q1H PRN PRN Reason: Pain (severe 7-10) Stop: 08/29/20 22:55 Last Admin: 08/29/20 20:24 Dose: 2 mg Documented by: Morphine Sulfate (Morphine) 4 mg IVPUSH Q30M PRN PRN Reason: dyspnea/airhunger Last Admin: 08/30/20 23:46 Dose: 4 mg Documented by: Ondansetron HCl (Zofran) 4 mg IVPUSH Q4H PRN PRN Reason: Nausea Oxycodone HCl (Oxycodone) 10 mg PO Q4H PRN PRN Reason: Pain Last Admin: 08/28/20 18:30 Dose: 10 mg Documented by: Oxycodone HCl (Oxycontin) 20 mg PO Q12HR [facility] Last Admin: 08/28/20 21:10 Dose: 20 mg Documented by: Oxycodone HCl (Oxycontin) 10 mg PO Q12HR [facility] Last Admin: 08/28/20 21:10 Dose: 10 mg Documented by: Scopolamine (Transderm-Scop) 1.5 mg TRDERM Q72H PRN PRN Reason: comfort care Last Admin: 08/30/20 16:38 Dose: 1.5 mg Documented by: Sodium Chloride (Saline Flush) 10 ml FLUSH ASDIRECTED PRN PRN Reason: Keep Vein Open Last Admin: 08/28/20 12:05 Dose: 10 ml Documented by: Sodium Chloride (Saline Flush) 2.5 ml FLUSH ASDIRECTED PRN PRN Reason: Keep Vein Open Last Admin: 08/28/20 12:05 Dose: 2.5 ml Documented by:
== END 2020-08-31 02:20 | disposition expired | DRG 177 ==
LOC: MW.ED 09:44 → MW.ICU 13:10 → MW.MS 08-30 18:10
PROVIDERS: ADMIT Internal Medicine; ATTEND Internal Medicine
PROC: XW033E5 Introduction of Remdesivir Anti-infective into Peripheral Vein, Percutaneous Approach, New Technology Group 5 (ICD-10-PCS; principal; 2020-08-28)
DX: G45.9 Transient cerebral ischemic attack, unspecified (principal); U07.1 COVID-19; J96.01 Acute respiratory failure with hypoxia; C34.90 Malignant neoplasm of unspecified part of unspecified bronchus or lung; C77.1 Secondary and unspecified malignant neoplasm of intrathoracic lymph nodes; C78.7 Secondary malignant neoplasm of liver and intrahepatic bile duct; C79.70 Secondary malignant neoplasm of unspecified adrenal gland; I25.9 Chronic ischemic heart disease, unspecified; G93.40 Encephalopathy, unspecified; Z51.5 Encounter for palliative care; Z66 Do not resuscitate; E83.52 Hypercalcemia; H54.7 Unspecified visual loss; I11.0 Hypertensive heart disease with heart failure; E11.40 Type 2 diabetes mellitus with diabetic neuropathy, unspecified; I50.9 Heart failure, unspecified; H90.5 Unspecified sensorineural hearing loss; I20.9 Angina pectoris, unspecified; E78.00 Pure hypercholesterolemia, unspecified; E78.5 Hyperlipidemia, unspecified; J44.9 Chronic obstructive pulmonary disease, unspecified; K42.9 Umbilical hernia without obstruction or gangrene; M19.90 Unspecified osteoarthritis, unspecified site; E11.42 Type 2 diabetes mellitus with diabetic polyneuropathy; G47.00 Insomnia, unspecified; F41.9 Anxiety disorder, unspecified; F43.10 Post-traumatic stress disorder, unspecified; E66.9 Obesity, unspecified; R29.890 Loss of height; Z96.642 Presence of left artificial hip joint; R29.708 NIHSS score 8; Z79.899 Other long term (current) drug therapy; Z87.891 Personal history of nicotine dependence; Z79.84 Long term (current) use of oral hypoglycemic drugs; Z98.890 Other specified postprocedural states; Z68.34 Body mass index [BMI] 34.0-34.9, adult
CPT/HCPCS: 36415; 70450; 70450-26; 70496; 70496-26; 70498; 70498-26; 71045; 71045-26; 80053; 81003; 82962; 83605; 83735; 83880; 84484; 85025; 85610; 85730; 86140; 93005; 93010; 99284; 99285-25; A9270-GY; J0456; J0630; J0696; J1100; J1650; J1815-GY; J1940; J2060; J2270; J3475; J7030; J7050; U0002